=== PATIENT | female | born 1965 | race Two or more races ===

== ENCOUNTER 2020-02-17 15:45 | Inpatient (IN) | payer OTHER ==
[~2020-02-17] VITALS: Ht 157.5 cm; Wt 75.3 kg
[2020-02-17 16:28] LABS: Hematocrit 26.9 % (33.0-51.0); Hemoglobin 8.9 g/dL (11.5-16.0); Mean Corpuscular HGB 24.1 pg (26.0-34.0); Mean Corpuscular HGB Conc 33.1 g/dL (31.5-36.5); Mean Corpuscular Volume 73 fL (80-100); Mean Platelet Volume 10.8 fL (9.1-12.4); Platelet Count 318 K/mm3 (150-400); RDW Coefficient Variation 17.2 % (11.7-14.2); RDW Standard Deviation 45.1 fL (35.1-46.3); Red Blood Cell Count 3.69 M/mm3 (3.80-5.20); White Blood Cell Count 22.47 K/mm3 (4.00-11.30)
[2020-02-17 16:40] LABS: Albumin, Blood 2.9 g/dL (3.4-5.0); Albumin/Globulin Ratio 0.7 (0.8-1.8); Bilirubin, Total 1.2 mg/dL (0.1-1.0); Bun/Creatinine Ratio 15.8 (12.0-20.0); Calcium, Blood 8.3 mg/dL (8.5-10.1); Creatinine, Blood 3.29 mg/dL (0.40-1.00); Potassium, Blood 3.2 mmol/L (3.5-5.5); Total Protein, Blood 6.9 g/dL (6.4-8.2)
[2020-02-17 16:45] LABS: BAND PERCENT MAN 21 % (0-8); BASOPHILS ABSOLUTE MAN 0.22 K/mm3 (0.00-0.23); BASOPHILS PERCENT MAN 1 % (0-2); EOSINOPHILS PERCENT MAN 0 % (0-6); LYMPHOCYTES ABSOLUTE MAN 0.44 K/mm3 (0.84-5.20); LYMPHOCYTES PERCENT MAN 2 % (21-46); METAMYELOCYTE ABSOLUTE MAN 0.44 K/mm3 (0.00-0.00); METAMYELOCYTE PERCENT MAN 2 % (0-0); MONOCYTES ABSOLUTE MAN 0.67 K/mm3 (0.16-1.47); MONOCYTES PERCENT MAN 3 % (4-13); NEUTROPHILS ABSOLUTE MAN 20.67 K/mm3 (1.96-9.15); SEG NEUTROPHILS PERCENT MAN 71 % (41-73); TOTAL CELLS COUNTED 100
[2020-02-17] MEDS ORDERED: ARIP20 PO (16:45)
[2020-02-17] MEDS ORDERED: AMLO5 PO (16:45)
[2020-02-17] MEDS ORDERED: Buspirone HCl15 MG PO (16:46)
[2020-02-17] MEDS ORDERED: Vitamin D2000 UNIT PO (16:46)
[2020-02-17] MEDS ORDERED: LISI5 PO (16:47)
[2020-02-17] MEDS ORDERED: EUTHYROX50 MCG PO (16:47)
[2020-02-17] MEDS ORDERED: MELA3 PO (16:48)
[2020-02-17] MEDS ORDERED: MYRBETRIQ50 MG PO (16:48)
[2020-02-17] MEDS ORDERED: OMEP20ER PO (16:49)
[2020-02-17] MEDS ORDERED: PARO30 PO (16:49)
[2020-02-17] MEDS ORDERED: TRAZ100 PO (16:50)
[2020-02-17] MEDS ORDERED: Ropinirole HCl2 MG PO (16:50)
[2020-02-17] MEDS ORDERED: GABA300 PO (17:03)
[2020-02-17] MEDS ORDERED: ASMANEX220 MC3 INH (17:03)
[2020-02-17] MEDS ORDERED: ANASTROZOLE PO (17:04)
[2020-02-17] MEDS ORDERED: SENN187 PO (17:04)
[2020-02-17] MEDS ORDERED: LIDO700A20 TOP (17:07)
[2020-02-17] MEDS ORDERED: Hydroxyzine HCl50 MG PO (17:07)
[2020-02-17] MEDS ORDERED: NAPR500 PO (17:09)
[2020-02-17] MEDS ORDERED: ONDA4 PO (17:09)
[2020-02-17] MEDS ORDERED: DICLOFENAC SOD100 G1 TOP (17:11)
[2020-02-17] MEDS ORDERED: Refresh Plus1 EACH BOTHEYES (17:11)
[2020-02-17 18:36] LABS: International Normalized Ratio 1.23
--- NOTE | 2020-02-17 20:35 | NUR ---
ADMIT/LINE PLACEMENT RECEIVED FROM ER AT 1938 VIA RNEY. AWAKE AND ALERT. ORIENTED X 3. SPEECH IS CLEAR AND APPROPRIATE. MOVES SELF EASILY IN BED. MOVING ALL EXTREMITIES WITHOUT DIFFICULTY. C/O PAIN IN MARTIN-RECTAL AREA AND LEFT UPPER LEG. MARTIN-RECTAL ABSCESS AND REDNESS TO LEFT INNER THIGH NOTED. MONITOR SHOWS NSR, RATE 90s. BP 81/51. RESPIRATIONS EVEN AND UNLABORED. SATS 91% ON 2L. SEE ADMIT ASSESSMENT FOR FULL ASSESSMENT. DR. DEWEY IN ROOM TO START CENTRAL LINE. MEDICATED WITH VERSED 2MG IV FOR PROCEDURE. FENTANYL 12.5MCG DRAWN UP BUT NEVER GIVEN. LEVOPHED STARTED @ 4MCG/MIN AT 2004 FOR BP 69/41. O2 INCREASED TO 4L AT 2014. CENTRAL LINE PLACED AND CONFIRMED WITH XRAY. LEVOPHED INCREASED TO 20MCG/MIN AT [address] DEWEY. LAWSON CATHETER PLACED. TO OR AT 2034.
--- NOTE | 2020-02-17 22:10 | NUR ---
RETURN FROM OR RECEIVED FROM OR S/P DEBRIDEMENT OF PERIANAL ABSCESS. PT IS INTUBATED- AC 16, TV 350, PEEP 5, FIO2 100%. RR 16. UNRESPONSIVE TO NOXIOUS STIMULI AT THIS TIME. LEVOPHED INFUSING @ 20MCG/MIN. BP 100/60. HR 100. SATS STABLE. PERIANAL ABSCESS PACKED WITH DAKINS SOLUTION SOAKED GAUZE AND COVERED WITH ABD PAD AND MADONNA UNDERWEAR PER DR. BAKER. LAWSON PATENT AND DRAINING. OG PLACED AT THIS TIME. CXR DONE TO CONFIRM ETT PLACEMENT- RT AT BEDSIDE AND PULLED ETT BACK SEVERAL CENTIMETERS. SEE RT CHARTING.
[2020-02-17 22:15] LABS: Adenovirus Not Detected (NOT DETECT); Bordetella pertussis Not Detected (NOT DETECT); Chlamydophila pneumoniae Not Detected (NOT DETECT); Coronavirus 229E Not Detected (NOT DETECT); Coronavirus HKU1 Not Detected (NOT DETECT); Coronavirus NL63 Not Detected (NOT DETECT); Coronavirus OC43 Not Detected (NOT DETECT); Human Metapneumovirus Not Detected (NOT DETECT); Human Rhinovirus/Enterovirus Not Detected (NOT DETECT); Influenza A/2009-H1 Not Detected (NOT DETECT); Influenza A/H1 Not Detected (NOT DETECT); Influenza A/H3 Not Detected (NOT DETECT); Influenza B Not Detected (NOT DETECT); Mycoplasma pneumoniae Not Detected (NOT DETECT); Parainfluenza Virus 1 Not Detected (NOT DETECT); Parainfluenza Virus 2 Not Detected (NOT DETECT); Parainfluenza Virus 3 Not Detected (NOT DETECT); Parainfluenza Virus 4 Not Detected (NOT DETECT); Respiratory Syncytial Virus Not Detected (NOT DETECT)
[2020-02-17 22:49] LABS: BASOPHILS ABSOLUTE AUTO 0.06 K/mm3 (0.00-0.23); BASOPHILS PERCENT AUTO 0 % (0-2); Hematocrit 25.9 % (33.0-51.0); Hemoglobin 8.3 g/dL (11.5-16.0); LYMPHOCYTES ABSOLUTE AUTO 1.12 K/mm3 (0.84-5.20); LYMPHOCYTES PERCENT AUTO 5 % (21-46); MONOCYTES ABSOLUTE AUTO 1.35 K/mm3 (0.16-1.47); MONOCYTES PERCENT AUTO 6 % (4-13); Mean Corpuscular HGB 23.9 pg (26.0-34.0); Mean Corpuscular Volume 74 fL (80-100); Mean Platelet Volume 10.3 fL (9.1-12.4); Platelet Count 305 K/mm3 (150-400); RDW Coefficient Variation 17.8 % (11.7-14.2); RDW Standard Deviation 48.3 fL (35.1-46.3); Red Blood Cell Count 3.48 M/mm3 (3.80-5.20); White Blood Cell Count 22.34 K/mm3 (4.00-11.30)
[2020-02-17 22:50] LABS: EOSINOPHILS ABSOLUTE AUTO 0.04 K/mm3 (0.00-0.68); EOSINOPHILS PERCENT AUTO 0 % (0-6); IMMATURE GRAN ABSOLUTE AUTO 1.04 K/mm3 (0.00-0.10); IMMATURE GRAN PERCENT AUTO 5 % (0-1); NEUTROPHILS ABSOLUTE AUTO 18.73 K/mm3 (1.96-9.15); NEUTROPHILS PERCENT AUTO 84 % (41-73)
[2020-02-17 22:50] LABS: Base Excess Venous -10.6 mmol/L; Bicarbonate Venous 16.3 mmol/L (24.0-30.0); PCO2 Venous 46.8 mmHg (38-42)
[2020-02-17 22:51] LABS: pH Blood Venous 7.19 (7.34-7.37)
[2020-02-17 23:05] LABS: BAND PERCENT MAN 7 % (0-8); BASOPHILS PERCENT MAN 0 % (0-2); EOSINOPHILS PERCENT MAN 0 % (0-6); LYMPHOCYTES ABSOLUTE MAN 0.89 K/mm3 (0.84-5.20); LYMPHOCYTES PERCENT MAN 4 % (21-46); METAMYELOCYTE ABSOLUTE MAN 0.22 K/mm3 (0.00-0.00); METAMYELOCYTE PERCENT MAN 1 % (0-0); MONOCYTES ABSOLUTE MAN 0.67 K/mm3 (0.16-1.47); MONOCYTES PERCENT MAN 3 % (4-13); NEUTROPHILS ABSOLUTE MAN 20.55 K/mm3 (1.96-9.15); SEG NEUTROPHILS PERCENT MAN 85 % (41-73); TOTAL CELLS COUNTED 100
[2020-02-17 23:08] LABS: Alanine Aminotransfer (ALT/SGP 35 U/L (12-78); Albumin, Blood 2.1 g/dL (3.4-5.0); Albumin/Globulin Ratio 0.6 (0.8-1.8); Alk Phos 100 U/L (50-136); Anion Gap 8 mmol/L (6-16); Aspartate Aminotrans (AST/SGOT 50 U/L (12-37); Bilirubin, Total 0.8 mg/dL (0.1-1.0); Blood Urea Nitrogen 40 mg/dL (8-24); Bun/Creatinine Ratio 18.8 (12.0-20.0); CO2, Blood 20 mmol/L (21-32); Calcium, Blood 7.2 mg/dL (8.5-10.1); Chloride, Blood 107 mmol/L (98-108); Creatinine, Blood 2.13 mg/dL (0.40-1.00); Globulin, Blood 3.5 g/dL (2.2-4.0); Glomerular Filtration Rate 26 (60-); Glucose, Blood 197 mg/dL (70-99); Sodium, Blood 135 mmol/L (136-145); Total Protein, Blood 5.6 g/dL (6.4-8.2); Troponin I <0.015 ng/mL (0.000-0.040)
[2020-02-18 04:14] LABS: Base Excess Venous -7.8 mmol/L; Bicarbonate Venous 18.3 mmol/L (24.0-30.0); PCO2 Venous 44.4 mmHg (38-42); PO2 Venous 64.8 mmHg (38-42); pH Blood Venous 7.25 (7.34-7.37)
[2020-02-18 04:34] LABS: Hematocrit 26.2 % (33.0-51.0); Hemoglobin 8.3 g/dL (11.5-16.0); Mean Corpuscular HGB 23.8 pg (26.0-34.0); Mean Corpuscular HGB Conc 31.7 g/dL (31.5-36.5); Mean Corpuscular Volume 75 fL (80-100); Mean Platelet Volume 10.7 fL (9.1-12.4); Platelet Count 337 K/mm3 (150-400); RDW Coefficient Variation 18.2 % (11.7-14.2); RDW Standard Deviation 49.1 fL (35.1-46.3); Red Blood Cell Count 3.49 M/mm3 (3.80-5.20); White Blood Cell Count 21.44 K/mm3 (4.00-11.30)
[2020-02-18 04:56] LABS: Alanine Aminotransfer (ALT/SGP 30 U/L (12-78); Albumin/Globulin Ratio 0.5 (0.8-1.8); Alk Phos 97 U/L (50-136); Anion Gap 8 mmol/L (6-16); Aspartate Aminotrans (AST/SGOT 40 U/L (12-37); Bilirubin, Total 0.7 mg/dL (0.1-1.0); Blood Urea Nitrogen 40 mg/dL (8-24); Bun/Creatinine Ratio 23.1 (12.0-20.0); CO2, Blood 20 mmol/L (21-32); Calcium, Blood 7.4 mg/dL (8.5-10.1); Chloride, Blood 106 mmol/L (98-108); Creatinine, Blood 1.73 mg/dL (0.40-1.00); Globulin, Blood 3.7 g/dL (2.2-4.0); Glomerular Filtration Rate 33 (60-); Glucose, Blood 230 mg/dL (70-99); Potassium, Blood 4.5 mmol/L (3.5-5.5); Sodium, Blood 134 mmol/L (136-145); Total Protein, Blood 5.7 g/dL (6.4-8.2); Vancomycin, Random 21.5 ug/mL
[2020-02-18 06:42] LABS: BAND PERCENT MAN 12 % (0-8); BASOPHILS PERCENT MAN 0 % (0-2); EOSINOPHILS PERCENT MAN 0 % (0-6); LYMPHOCYTES ABSOLUTE MAN 0.85 K/mm3 (0.84-5.20); LYMPHOCYTES PERCENT MAN 4 % (21-46); METAMYELOCYTE ABSOLUTE MAN 0.21 K/mm3 (0.00-0.00); METAMYELOCYTE PERCENT MAN 1 % (0-0); MONOCYTES ABSOLUTE MAN 1.07 K/mm3 (0.16-1.47); MONOCYTES PERCENT MAN 5 % (4-13); MYELOCYTE ABSOLUTE MAN 0.21 K/mm3 (0.00-0.00); MYELOCYTE PERCENT MAN 1 % (0-0); NEUTROPHILS ABSOLUTE MAN 19.08 K/mm3 (1.96-9.15); SEG NEUTROPHILS PERCENT MAN 77 % (41-73); TOTAL CELLS COUNTED 100
--- NOTE | 2020-02-18 06:51 | NUR ---
SHIFT SUMMARY REMAINS INTUBATED- AC 20, TV 350, PEEP 5, FIO2 50%. SEDATED WITH PROPOFOL 10-30MCG/MIN- NOW AT 30MCG/MIN. OPENS EYES SPONTANEOUSLY AND NODS HEAD YES/NO APPROPRIATELY. FOLLOWS SIMPLE COMMANDS. MEDICATED WITH DILAUDID 1MG IV THIS AM FOR C/O PERIANAL PAIN. LEVOPHED BETWEEN 4-20MCG/MIN DURING SHIFT TO MAINTAIN MAP >60- INFUSING AT 17MCG/MIN NOW. VASOPRESSIN @ 0.04UNITS/MIN PER ORDER. RI SITE PATENT, DRSG C/D/I. MONITOR SHOWS NSR, RATE 80-90s. AFEBRILE T/O SHIFT. OG TO LIS WITH SCANT TANNISH DRAINAGE. LAWSON PATENT AND DRAINING DERECK URINE. PERIANAL ABSCESS WITH PACKING AND ABD PAD INTACT. PAS TO BLE. GIVEN UPDATE THIS AM- HE IS ANGRY THAT HE ISN'T ALLOWED TO VISIT PATIENT AND THAT WE AREN'T "GIVING HIM INFORMATION." FULL UPDATE GIVEN. WILL REPORT TO DAY SHIFT RN WHEN AVAILABLE.
--- NOTE | 2020-02-18 08:45 | NUR ---
ASSUMED CARE OF PT AT 0700. REPORT FROM EZEQUIEL SENA. PT INTUBATED AND SEDATED. VENT SETTINGS AC 20/350/5/45%. PROPOFOL INFUSING AT 30 MCG/KG/MIN AT START OF SHIFT, TITRATED TO 20 MCG/KG/MIN AT THIS TIME. PT GRIMICES TO PAINFUL STIMULI. LUNGS CLEAR THROUGHOUT. OGT CLAMPED. PLACEMENT VERIFIED BY AUSCULTATION. MEDS GIVEN VIA OGT. CENTRAL LINE TO RIGHT IJ. DRESSING C/D/I. LEVOPHED INFUSING AT 17MCG/MIN AT START OF SHIFT, 13 MCG/MIN AT THIS TIME, VASOPRESSIN AT 0.04 UNITS/HR. WILL TITRATE FOR MAP >65. ABD DISTENDED, SOFT, NON TENDER. BT HYPOACTIVE. TEMP PROBE LAWSON PATENT AND DRAINING CLEAR DERECK URINE TO GRAVITY. DRESSING TO POSTERIOR LEFT UPPER LEG, C/D/I. DR BAKER ROUNDED THIS AM, PLAN TO REMOVE DRESSING LATER THIS SHIFT AND RETURN TO OR IF NEEDED. WILL LEAVE DRESSING INTACT UNTIL THEN. WILL CONTINUE TO MONITOR.
--- NOTE | 2020-02-18 13:36 | NUR ---
DR BAKER/DR ZULEIMA BAKER IN ROOM FOR ASSESSMENT. DRESSING REMOVED. PER DR BAKER, REDNESS TO THIGH IMPROVED AND TISSUE ALIVE IN WOUND. REPACKED c 4IN KERLEX c DAKIN AND ABD PADS PLACED. DR BAKER STATES HE WILL RETURN FOR DRESSING CHANGES DAILY FOR NEXT TWO DAYS. DR DEWEY IN ROOM FOR ASSESSMENT. WILL CONTINUE TO TITRATE LEVOPHED DOWN, D/C VASOPRESSIN ONCE LEVOPHED <10 MCG/MIN.
--- NOTE | 2020-02-18 17:02 | NUR ---
SHIFT SUMMARY PT REMAINS INTUBATED AND SEDATED. VENT SETTINGS AC 20/350/5/40%. PROPOFOL INFUSING AT 25 MCG/KG/MIN. PT WAKES INTERMITTANTLY c STIMULI, FOLLOWS COMMANDS. APPEARS TO REST COMFORTABLEY WHEN UNDISTURBED. MEDICATED c FENTANYL PRN. LEVOPHED INFUSING AT 9 MCG/MIN, VASOPRESSIN IN STANDBY SINCE APPROX 1430. MAPS >60. NSR, RATE 70'S. LUNGS CLEAR, SCANT [place] SECRETIONS THROUGH ETT. TRICKLE FEEDS STARTED THROUGH OGT, PIVOT 1.5 AT 10 ML/HR c 30 ML q4 HR FLUSHES. LAWSON PATENT AND DRAINING TO GRAVITY. DRESSING REMOVED BY DR ABKER THIS SHIFT, SEE PREVIOUS NOTE. ANTIBIOTICS CONTINUED THIS SHIFT. CENTRAL LINE TO RIJ, DRESSING C/D/I. UPDATED FRANCISCO JAVIER AND FATHER, AMOL MCINTYRE'S PERMISSION OVER PHONE TODAY. WILL CONTINUE TO MONITOR UNTIL REPORT TO ONCOMING NURSE.
[2020-02-19 05:17] LABS: Anion Gap 6 mmol/L (6-16); Blood Urea Nitrogen 21 mg/dL (8-24); Bun/Creatinine Ratio 21.4 (12.0-20.0); CO2, Blood 25 mmol/L (21-32); Calcium, Blood 7.8 mg/dL (8.5-10.1); Chloride, Blood 110 mmol/L (98-108); Creatinine, Blood 0.98 mg/dL (0.40-1.00); Glomerular Filtration Rate >60 (60-); Glucose, Blood 135 mg/dL (70-99); Magnesium, Blood 2.4 mg/dL (1.6-2.4); Phosphorus, Blood 1.8 mg/dL (2.5-4.9); Potassium, Blood 3.6 mmol/L (3.5-5.5); Sodium, Blood 141 mmol/L (136-145); Vancomycin, Random 11.5 ug/mL
--- NOTE | 2020-02-19 06:15 | NUR ---
SHIFT SUMMARY PATIENT DID WELL TONIGHT. PASSED SPONTANEOUS BREATHING TRIAL, WAS ON MINIMAL PROPOFOL, STILL AWAKE, ALERT, FOLLOWING DIRECTIONS. PLACED ON SPONTANEOUS PER RESPIRATORY THERAPY, DID WELL FOR 30 MINUTES, DECIDED TO PLACE BACK ON SEDATION R/T IRRITATION FROM ETT. BEDBATH COMPLETED. ASSESSMENT IS CHARTED. VSS. NO C/O PAIN. WILL CONTINUE TO MONITOR.
--- NOTE | 2020-02-19 08:11 | NUR ---
ASSUMED CARE OF PT AT 0700. REPORT FROM TAYLOR SENA. PT INTUBATED AND SEDATED. VENT SETTINGS AC 20/350/5/50%. PROPOFOL INFUSING AT 40 MCG/KG/MIN. PT RESPONSES TO PAINFUL STIMULI, LOCALIZES PAIN. MEDICATED c FENTANYL PRN FOR POST OP PAIN. COUGH AND GAG REFLEX, NO SWALLOW. MAEW. LUNGS COARSE ON LEFT SIDE. SCANT AMOUNT OF WHITE/RICHMOND SECRETIONS THROUGH ETT. 7.0, 19 AT LIP. LEVOPHED INFUSING AT 9 MCG/MIN AT START OF SHIFT, CURRENTLY AT 5 MCG/MIN, WILL CONTINUE TO TITRATE TO MAP >65. NSR ON MONITOR, RATE 70-80'S. OGT IN PLACE, PIVOT 1.5 AT 10 ML/HR c 30 ML FLUSHES q4 HOURS. 20ML RESIDUALS THIS AM. ABD ROUND, DISTENDED. HYPOACTIVE BT X 4. TEMP PROBE LAWSON PATENT, DRAINING CLEAR YELLOW URINE TO GRAVITY. TEMP 99.3. SCDS IN PLACE. BILATERAL WRIST RESTARINTS TO PROTECT LINES AND TUBES. WILL CONTINUE TO MONITOR.
--- NOTE | 2020-02-19 09:20 | NUR ---
PT PLACED ON SPONTANEOUS MODE BY DR DEWEY. PS 5, PEEP 5, 40% AT 0820. PROPOFOL PLACED ON STANDBY AT 0826. PT FOLLOWS DIRECTIONS. STRONG COUGH. CALM AND COOPERATIVE. TUBE FEEDS PLACED ON STANDBY. PT EXTUBATED AT 0852. RESTRAINTS REMOVED. PT TOLERATED WELL. STRONG COUGH AND VOICE. A&OX4. PLACED ON 7L O2 VIA HIGH FLOW NC. O2 SATS MID 90'S.
--- NOTE | 2020-02-19 11:40 | NUR ---
DR BAKER IN ROOM FOR DRESSING CHANGE. PACKING REMOVED. AREA PINK. DRESSING REPLACED BY ARNAV RICHARDSON DAKIN, ABD PAD, MADONNA PANTS. WILL NOT REPLACE TAPE D/T SKIN SLOUGHING. PT PASSED SWALLOW SCREEN s DIFFICULTIES.
--- NOTE | 2020-02-19 17:18 | NUR ---
SHIFT SUMMARY PT EXTUBATED THIS AM. TOLERATED WELL. PASSED BEDSIDE SWALLOW EVAL. MECHANICAL SOFT DIET D/T DENTURES. PT ON AIRVO 40L 65%. O2 SATS >95%. ENCOURAGING COUGHING AND DEEP BREATHING. PT c BLOOD STREAKED SPUTUM. LUNGS COARSE THROUGHOUT. SPEAKING IN FULL SENTANCES. PRESSORS ON STANDBY SINCE THIS AM. VSS. TMAX 100.0. LAWSON PATENT AND DRAINING CLEAR YELLOW URINE TO GRAVITY. DR BAKER IN FOR DRESSING CHANGE THIS SHIFT. PT MEDICATED c FENTANYL PRN FOR PAIN. WILL CONTINUE TO MONITOR UNTIL REPORT TO ONCOMING NURSE.
--- NOTE | 2020-02-19 20:06 | NUR ---
ASSUMED CARE OF PT AT 1915. REPORT RECEIVED AT BEDSIDE. PT PRESENTS IN BED ALERT AND ORIENTED. PLEASANT AND COOPERATIVE WITH CARE AND ASSESSMENT. PT EXPRESSES THAT SHE IS WANTING TO MAKE SURE SHE RECEIVES PAIN MEDICATIONS FOR POST SURGICAL WOUND CARE. TEACHING DONE ON PAIN MANAGEMENT DONE. WILL KEEP ASSESSING PT'S NEED FOR PAIN MEDICATIONS. PT DOES HAVE LOW GRADE FEVER OF 100.0 PER LAWSON TEMP PROBE. ADMINISTERED 650 MG TYLENOL WELL 50 MCG FENTANYL. PENDING RESULTS. ENCOURAGED PT TO COUGH AND DEEP BREATHE. TO TURN SELF IN BED. DRIPS VERIFIED. WILL REVIEW CHART AND PLAN OF CARE FOR THIS PT.
--- NOTE | 2020-02-19 22:05 | NUR ---
HAVE MEDICATED PT AGAIN WITH 50 MCG FENTANYL FOR POST OP PAIN. PT BECAME NAUSEAS AFTER TAKING LIQUID DUCOSATE SODIUM. MEDICATED PT WITH 5 MG COMPAZINE IV. PENDING RESULTS. PT DOES TEND TO DESATURATE EASILY WITH ANY EXERTION. ENCOURAGED PT TO DEEP BREATHE THRU NARES. PT CURRENTLY > 90 PERCENT SATURATED.
[2020-02-20 06:10] LABS: Anion Gap 7 mmol/L (6-16); Blood Urea Nitrogen 9 mg/dL (8-24); Bun/Creatinine Ratio 12.8 (12.0-20.0); CO2, Blood 26 mmol/L (21-32); Calcium, Blood 8.1 mg/dL (8.5-10.1); Chloride, Blood 108 mmol/L (98-108); Glomerular Filtration Rate >60 (60-); Glucose, Blood 125 mg/dL (70-99); Phosphorus, Blood 2.5 mg/dL (2.5-4.9); Potassium, Blood 3.6 mmol/L (3.5-5.5); Sodium, Blood 141 mmol/L (136-145)
--- NOTE | 2020-02-20 06:30 | NUR ---
PT HAS BEEN INCONTINENT TO STOOL X 3 DURING THE NIGHT. TWICE REQUIRING TO HAVE MARTIN-ANAL WOUND DRESSING CHANGED. OF NOTE: WOUND BASE WITH GOOD GRANULATIONS. EDGES NOT ATTACHED. COPIOUS IRRIGATION WITH NORMAL SALINE SECONDARY TO INADVERTANT STOOL WITHIN WOUND. PT PREMEDICATED WITH FENTANYL. PT HAS HAD MANY EPISODES OF DESATURATION TO 70'S TO 80'S PERCENT WHEN SHE HAS HAD COUGH OR EXERTION. PT DEMONSTRATES "AIR HUNGER" AND BECOMES VERY ANXIOUS. DID PROVIDE PT WITH NRB SO WHEN SHE HAS THESE EPISODES SHE CAN RECOVER FASTER. THIS HAS BEEN AFFECTIVE. WILL CONTINUE TO MONITOR PT, AND WILL REPORT OFF TO ONCOMING RN.
--- NOTE | 2020-02-20 07:29 | NUR ---
ASSUMED CARE REPORT FROM JAIDA SHEFFIELD. PATIENT HAS NRB OVER HIGH FLOW NC. RR 40'S-50'S. HYPERTENSIVE, FINE CRACKLES AUSCULTATED. RT AT BEDSIDE. DR. NAVA CONTACTED. ORDERS FOR BIPAP 10/5 LASIX 40 MG IV NOW. IMMEDIATE IMPROVEMENT ON BIPAP. BEDPAN PLACED FOR BM, WAS INCONTINENT WITH STOOL INTO WOUND. WILL MEDICATE FOR PAIN PRIOR TO CLEANING.
[2020-02-20 08:01] LABS: Hemoglobin 8.5 g/dL (11.5-16.0); Mean Corpuscular HGB 24.4 pg (26.0-34.0); Mean Corpuscular HGB Conc 32.7 g/dL (31.5-36.5); Mean Corpuscular Volume 75 fL (80-100); Mean Platelet Volume 10.3 fL (9.1-12.4); NRBC ABSOLUTE 0.02 K/mm3 (0.00-0.02); NRBC Auto 0.1 /100 WBC (0.0-0.2); Platelet Count 353 K/mm3 (150-400); RDW Coefficient Variation 18.5 % (11.7-14.2); Red Blood Cell Count 3.48 M/mm3 (3.80-5.20); White Blood Cell Count 20.03 K/mm3 (4.00-11.30)
[2020-02-20 08:23] LABS: BAND PERCENT MAN 3 % (0-8); BASOPHILS PERCENT MAN 0 % (0-2); EOSINOPHILS PERCENT MAN 3 % (0-6); LYMPHOCYTES PERCENT MAN 9 % (21-46); METAMYELOCYTE PERCENT MAN 3 % (0-0); MONOCYTES PERCENT MAN 3 % (4-13); MYELOCYTE PERCENT MAN 2 % (0-0); NEUTROPHILS ABSOLUTE MAN 16.02 K/mm3 (1.96-9.15); SEG NEUTROPHILS PERCENT MAN 77 % (41-73); TOTAL CELLS COUNTED 100
--- NOTE | 2020-02-20 08:44 | NUR ---
MD VISIT DR. BAKER IN. DRESSING CHANGED. PLAN FOR SURGERY ON SUNDAY.
--- NOTE | 2020-02-20 09:06 | NUR ---
MD VISIT DR. NAVA IN. ORDER TO PRONE PT IF TOLERATED
--- NOTE | 2020-02-20 09:19 | NUR ---
UPDATED. HE WILL BRING IN PHONE DISPATCH CLERK AND I PAD
--- NOTE | 2020-02-20 12:33 | NUR ---
ECHOCARDIOGRAM COMPLETED.
--- NOTE | 2020-02-20 12:50 | NUR ---
PATIENT SELF-PRONED 1020. INITIALLY ON 10L HIGH-FLOW NC, BUT ARMAAN-GARRETT BREATHING NOTED WHEN ASLEEP AND O2 TITRATED TO 15L. WAS PRONE UNTIL 1045 WHEN ASSISTED TO [facility] [place] [facility] FOR BM PRIOR TO ECHO. ECHO COMPLETED AND PLACED BACK ON BIPAP FOR SUPINE AND SIDE POSITIONING.
--- NOTE | 2020-02-20 13:03 | NUR ---
MD VISIT DR. NAVA IN. BIPAP CHANGED TO 8/5 AND 40% FIO2
--- NOTE | 2020-02-20 14:56 | NUR ---
SOB AFTER BSC USE. BIPAP MASK BACK ON. FENTANYL GIVEN PRIOR TO WOUND CLEANING/DRESSING CHANGE AFTER BM.
--- NOTE | 2020-02-20 15:06 | NUR ---
TYLENOL GIVEN FOR FEVER
--- NOTE | 2020-02-20 19:00 | NUR ---
ASSUMED CARE ASSUMED CARE OF PATIENT. AWAKE AND ALERT. WATCHING TELEVISION. PT IS IRRITABLE AND ANNOYED WITH THE FACT THAT HER HOME MEDS HAVEN'T BEEN RESTARTED AND THAT THE OTHER PATIENTS IN THE ICU ARE NOISY AND AGITATED. REMAINS ON 15L HFNC- SATS DECREASE TO MID 70-80s WITH EXERTION. MONITOR SHOWS NSR, RATE 90s. HYPERTENSIVE. LAWSON PATENT AND DRAINING YELLOW URINE. RIGHT IJ NOTED, SL. PERIANAL DRSG C/D/I AT THIS TIME. SEE SHIFT ASSESSMENT FOR FULL ASSESSMENT.
--- NOTE | 2020-02-20 19:17 | NUR ---
BREAK FROM BIPAP ON 12L NC. ENCOURAGEMENT TO TAKE A DEEP BREATH THROUGH HER NOSE WHEN BIOX DROPS.
--- NOTE | 2020-02-20 20:05 | NUR ---
CRACKLES/CALL TO MD PT STATES "I FEEL LIKE I'M DROWNING." LUNGS WITH CRACKLES T/O. MOIST COUGH. REMAINS ON 15L HFNC WITH SATS ANYWHERE FROM 75-90%. TACHYPNEIC. DR. LINDSAY NOTIFIED AND NEW ORDER RECEIVED FOR LASIX 20MG IV X 1.
--- NOTE | 2020-02-20 21:55 | NUR ---
REFUSING BIPAP/CALL TO PT REFUSING BIPAP. STATES "THERE'S NO WAY I CAN SLEEP WITH THAT THING ON." CHANGED BACK TO HFNC. PT IS ALSO UPSET THAT HER HOME MEDS HAVEN'T BEEN RESTARTED. STATES "I WON'T BE ABLE TO SLEEP WITHOUT MY MELATONIN AND TRAZEDONE." CALL TO DR. LINDSAY AND NEW ORDERS RECEIVED FOR SOME OF HER HOME MEDS TO BE RESTARTED AND FOR ATIVAN 1MG PO IF NEEDED.
[2020-02-21 05:43] LABS: Hematocrit 26.5 % (33.0-51.0); Hemoglobin 8.6 g/dL (11.5-16.0); Mean Corpuscular HGB 23.8 pg (26.0-34.0); Mean Corpuscular HGB Conc 32.5 g/dL (31.5-36.5); Mean Corpuscular Volume 73 fL (80-100); Mean Platelet Volume 10.3 fL (9.1-12.4); NRBC ABSOLUTE 0.03 K/mm3 (0.00-0.02); NRBC Auto 0.1 /100 WBC (0.0-0.2); Platelet Count 379 K/mm3 (150-400); RDW Coefficient Variation 17.5 % (11.7-14.2); Red Blood Cell Count 3.61 M/mm3 (3.80-5.20); White Blood Cell Count 22.32 K/mm3 (4.00-11.30)
[2020-02-21 05:57] LABS: Anion Gap 9 mmol/L (6-16); Blood Urea Nitrogen 9 mg/dL (8-24); Bun/Creatinine Ratio 12.9 (12.0-20.0); CO2, Blood 30 mmol/L (21-32); Calcium, Blood 8.4 mg/dL (8.5-10.1); Chloride, Blood 99 mmol/L (98-108); Glomerular Filtration Rate >60 (60-); Glucose, Blood 150 mg/dL (70-99); Phosphorus, Blood 2.8 mg/dL (2.5-4.9); Potassium, Blood 2.8 mmol/L (3.5-5.5); Sodium, Blood 138 mmol/L (136-145)
--- NOTE | 2020-02-21 05:58 | NUR ---
SHIFT SUMMARY NO ACUTE CHANGES. O2 REQUIREMENTS OSCILLATED BETWEEN BIPAP 8/5 WITH FIO2 80%, AIRVO 60L/80% FIO2, AND 15L HFNC. DYSPNEA WITH EXERTION. TACHYPNEA AT TIMES. OCCASIONAL MOIST COUGH. MEDICATED WITH LASIX 20MG IV X 1 AT BEGINNING OF SHIFT FOR FLUID OVERLOAD. LUNGS WITH CRACKLES IN BASES. PT STATES SHE FEELS LIKE SHE IS BREATHING BETTER. MONITOR SHOWS NSR, RATE 90s. OCCASIONALLY HYPERTENSIVE WITH SBP 160s AND DBP 90-100s. TMAX 100.4F. MEDICATED WITH FENTANYL 50MCG IV X 2 DOSES FOR C/O PERIANAL PAIN WITH GOOD RESULTS. LAWSON PATENT AND DRAINING YELLOW URINE. WILL REPORT TO DAY SHIFT RN WHEN AVAILABLE.
[2020-02-21 06:34] LABS: BAND PERCENT MAN 3 % (0-8); BASOPHILS PERCENT MAN 0 % (0-2); EOSINOPHILS PERCENT MAN 0 % (0-6); LYMPHOCYTES ABSOLUTE MAN 3.12 K/mm3 (0.84-5.20); LYMPHOCYTES PERCENT MAN 14 % (21-46); METAMYELOCYTE ABSOLUTE MAN 0.44 K/mm3 (0.00-0.00); METAMYELOCYTE PERCENT MAN 2 % (0-0); MONOCYTES ABSOLUTE MAN 0.44 K/mm3 (0.16-1.47); MONOCYTES PERCENT MAN 2 % (4-13); MYELOCYTE ABSOLUTE MAN 0.22 K/mm3 (0.00-0.00); MYELOCYTE PERCENT MAN 1 % (0-0); NEUTROPHILS ABSOLUTE MAN 18.07 K/mm3 (1.96-9.15); SEG NEUTROPHILS PERCENT MAN 78 % (41-73); TOTAL CELLS COUNTED 100
--- NOTE | 2020-02-21 07:37 | NUR ---
ASSUMED CARE REPORT FROM JAIDA NIEVES. PATIENT ASLEEP WITH AIRVO IN PLACE AT 60L/82% FIO2.BIOX 94-96% GHAZALRT WILL TITRATE O2 DOWN TO MAINTAIN BIOX 88%-94%
--- NOTE | 2020-02-21 08:48 | NUR ---
PATIENT CONTINUES TO SLEEP. C/O BEING KEPT AWAKE BY DISRUPTIVE PATIENTS LAST NIGHT, SO ALLOWING TO SLEEP
--- NOTE | 2020-02-21 09:31 | NUR ---
MD VISIT DR. NAVA IN. WILL REVIEW HOME MEDS TO RESTART
--- NOTE | 2020-02-21 10:41 | NUR ---
MD VISIT DR. LEYVA IN TO INTRODUCE HIMSELF AND THE HOSPITALIST SERVICE.
--- NOTE | 2020-02-21 12:31 | NUR ---
DRESSING CHANGE AND BATH GIVEN AFTER PREMEDICATION WITH FENTANYL. COACHING TO TAKE DEEP BREATHS THROUGH NOSE TO RECOVER O2 SATS
--- NOTE | 2020-02-21 18:19 | NUR ---
PATIENT HAS REMAINED ON AIRVO T/O THE DAY. HOME ANXIETY MEDS WERE RESTARTED. POOR APPETITE CONTINUES, BUT ROSANA IN DIETARY CHANGED HER MENU TO FOODS SHE LIKES. REFUSES TO WEAR BIPAP. BIOX DROPS QUICKLY WHEN SHE TAKES O2 OFF AND WITH TALKING AND ACTIVITY. NEEDS TO BE REMINDED TO TAKE DEEP BREATHS. 850 CC URINE OUT FOR SHIFT. BID LASIX GIVEN.
--- NOTE | 2020-02-21 19:00 | NUR ---
ASSUMED CARE ASSUMED CARE OF PATIENT. SLEEPING WHEN UNDISTURBED. ROUSES EASILY TO VERBAL STIMULI. REPOSITIONS SELF IN BED WITHOUT DIFFICULTY. CONTINUES WITH C/O "BOTTOM" PAIN, BUT DOES STATE ADEQUATE PAIN CONTROL WITH CURRENT TREATMENT. DENIES NEED FOR PAIN MED AT THIS TIME. TACHYPNEIC AT TIMES. DYSPNEA WITH EXERTION. REMAINS ON AIRVO 60L, FIO2 62%. RR 24-40s. OCCASIONAL MOIST COUGH PRODUCTIVE OF CLEAR SPUTUM. MONITOR SHOWS NSR WITH OCCASIONAL PACs AND PVCs, RATE 80s. BP STABLE. TEMP 100.4F. LAWSON PATENT AND DRAINING YELLOW URINE. PERIANAL/LEFT THIGH WOUND WITH PACKING INTACT. RIJ SITE NOTED WITH CHLOE C/D/I. SEE SHIFT ASSESSMENT FOR FULL ASSESSMENT.
[2020-02-22 03:46] LABS: BASOPHILS ABSOLUTE AUTO 0.06 K/mm3 (0.00-0.23); BASOPHILS PERCENT AUTO 0 % (0-2); Hematocrit 25.1 % (33.0-51.0); Hemoglobin 8.1 g/dL (11.5-16.0); LYMPHOCYTES ABSOLUTE AUTO 2.69 K/mm3 (0.84-5.20); LYMPHOCYTES PERCENT AUTO 15 % (21-46); MONOCYTES ABSOLUTE AUTO 0.47 K/mm3 (0.16-1.47); MONOCYTES PERCENT AUTO 3 % (4-13); Mean Corpuscular HGB 23.9 pg (26.0-34.0); Mean Corpuscular HGB Conc 32.3 g/dL (31.5-36.5); Mean Corpuscular Volume 74 fL (80-100); Mean Platelet Volume 10.1 fL (9.1-12.4); NRBC ABSOLUTE 0.03 K/mm3 (0.00-0.02); NRBC Auto 0.2 /100 WBC (0.0-0.2); Platelet Count 384 K/mm3 (150-400); RDW Coefficient Variation 17.9 % (11.7-14.2); RDW Standard Deviation 46.5 fL (35.1-46.3); Red Blood Cell Count 3.39 M/mm3 (3.80-5.20)
[2020-02-22 03:48] LABS: EOSINOPHILS ABSOLUTE AUTO 0.67 K/mm3 (0.00-0.68); EOSINOPHILS PERCENT AUTO 4 % (0-6); IMMATURE GRAN ABSOLUTE AUTO 2.35 K/mm3 (0.00-0.10); IMMATURE GRAN PERCENT AUTO 13 % (0-1); NEUTROPHILS ABSOLUTE AUTO 11.46 K/mm3 (1.96-9.15); NEUTROPHILS PERCENT AUTO 65 % (41-73)
[2020-02-22 04:05] LABS: BAND PERCENT MAN 1 % (0-8); BASOPHILS PERCENT MAN 0 % (0-2); EOSINOPHILS ABSOLUTE MAN 1.06 K/mm3 (0.00-0.68); EOSINOPHILS PERCENT MAN 6 % (0-6); LYMPHOCYTES ABSOLUTE MAN 2.47 K/mm3 (0.84-5.20); LYMPHOCYTES PERCENT MAN 14 % (21-46); METAMYELOCYTE ABSOLUTE MAN 0.35 K/mm3 (0.00-0.00); METAMYELOCYTE PERCENT MAN 2 % (0-0); MONOCYTES ABSOLUTE MAN 0.53 K/mm3 (0.16-1.47); MONOCYTES PERCENT MAN 3 % (4-13); MYELOCYTE PERCENT MAN 4 % (0-0); NEUTROPHILS ABSOLUTE MAN 12.56 K/mm3 (1.96-9.15); SEG NEUTROPHILS PERCENT MAN 70 % (41-73); TOTAL CELLS COUNTED 100
[2020-02-22 04:14] LABS: Alanine Aminotransfer (ALT/SGP 22 U/L (12-78); Albumin, Blood 1.9 g/dL (3.4-5.0); Albumin/Globulin Ratio 0.4 (0.8-1.8); Alk Phos 107 U/L (50-136); Anion Gap 7 mmol/L (6-16); Aspartate Aminotrans (AST/SGOT 31 U/L (12-37); Bilirubin, Total 0.4 mg/dL (0.1-1.0); Blood Urea Nitrogen 17 mg/dL (8-24); Bun/Creatinine Ratio 20.8 (12.0-20.0); CO2, Blood 30 mmol/L (21-32); Calcium, Blood 8.2 mg/dL (8.5-10.1); Chloride, Blood 101 mmol/L (98-108); Creatinine, Blood 0.82 mg/dL (0.40-1.00); Globulin, Blood 4.6 g/dL (2.2-4.0); Glomerular Filtration Rate >60 (60-); Glucose, Blood 125 mg/dL (70-99); Potassium, Blood 3.6 mmol/L (3.5-5.5); Sodium, Blood 138 mmol/L (136-145); Total Protein, Blood 6.5 g/dL (6.4-8.2)
--- NOTE | 2020-02-22 06:35 | NUR ---
SHIFT SUMMARY NO ACUTE CHANGES. REMAINED ON AIRVO T/O NOC- 60L, FIO2 BETWEEN 62-70% TO KEEP SATS 88-95%. DYSPNEA WITH EXERTION. TACHYPNEA AT TIMES. OCCASIONAL MOIST COUGH, PRODUCTIVE OF CLEAR SPUTUM PER PATIENT. LUNGS WITH CRACKLES IN BASES. MONITOR SHOWS NSR, RATE 70-90s. TMAX 100.4F. MEDICATED WITH FENTANYL 50MCG IV X 3 DOSES FOR C/O PERIANAL PAIN WITH GOOD RESULTS. LAWSON PATENT AND DRAINING DERECK URINE. CONTINUES WITH POOR APPETITE. PERINEAL/LEFT MEDIAL THIGH WOUND REMAINS PACKED AND WITH DRSG D/I. REPOSITIONS SELF IN BED. ENCOURAGED FREQUENT REPOSITIONING AND USE OF FLUTTER VALVE. WILL REPORT TO DAY SHIFT RN WHEN AVAILABLE.
--- NOTE | 2020-02-22 07:49 | NUR ---
CARE ASSUMED CARE AND REPORT ASSUMED FROM EZEQUIEL SENA. PT SITTING UPRIGHT IN BED, ABLE TO COMMUNICATE HER NEEDS. A/OX 3. WEARING AIRVO 60L, 70% AT START OF SHIFT. PT REPORTED HAVING A BOWEL MOVMENT. PT CLEANED, PACKING REMOVED FROM GROIN AND NEW PACKING INSERTED. BEDDING CHANGED. PHOTOS OF WOUND OBTAINED. PT EXHAUSTED FROM MULTIPLE TURNS AND DRESSING CHANGED. BIPAP 8/5, 55% APPLIED FOR AWHILE AND WILL ATTEMPT TO PUT PT BACK ON AIRVO. FENTANYL 50 MCG IVP GIVEN FOLLOWING DRESSING CHANGE. NSR, HR 80S. BP WNL. TEMP 99.7. WILL COTNINUE TO MONITOR.
--- NOTE | 2020-02-22 12:12 | NUR ---
REASSESSMENT PT REMAINS ON AIRVO 60L, 50% FIO2. ATTEMPTED VENTURI MASK PER MD AND PTS SPO2 DROPPED TO HIGH 70S IN A FEW MINUTES. SPO2 88-96% ON AIRVO CURRENTLY. REMAINS IN NSR, HR 70-80S. BP WNL. WILL CONTINUE TO MONITOR.
--- NOTE | 2020-02-22 18:10 | NUR ---
SHIFT SUMMARY PT HAS REMAINED IN BED THROUGHOUT DAY DUE TO PAIN IN GROIN. SHE HAS HAD MULTIPLE BOWEL MOVEMENTS DURING SHIFT AND EACH TIME, WOUND PACKING NEEDS TO BE REMOVED, CLEANED OUT AND REDRESSED. WOUND PACKING REMOVED, CLEANED AND REINSERTED 2X. WET PACKING INSERTED AND LOOSE ABD PAD APPLIED OVER. DISPOSABLE UNDERWEAR WORN OVER WOUND DRESSING. REMAINS IN NSR, HR 80S. BP WNL ENTIRE SHIFT. TMAX 99.7. PT ASSISTS WITH TURNS AND ADJUSTMENTS IN BED. THROUGHOUT SHIFT, PT WORE AIRVO 60L, 50-60% SPO2 OR BIPAP NEEDED. DOES BEST WITH BIPAP DURING CLEANING AND WOUND CHANGING. PT HAS DECREASED APPETITE TODAY. URINE OUTPUT 280 ML. FENTANYL GIVEN IVP NEEDED FOR PAIN. WILL GIVE BEDSIDE, HANDOFF REPORT TO PALMA RN. PT TO BE NPO AT 0000.
--- NOTE | 2020-02-22 22:00 | NUR ---
ASSUMPTION OF CARE ASSUMED CARE OF PT @ 1900, PT AWAKE IN BED, ORIENTED TO SELF, LOCATION, EVENT AND FOLLOWING DIRECTIONS. PT ON AIRVO @ 60L, FIO2 TITRATED TO MAINTAIN SATURATIONS 88%-94%, CURRENTLY AT 48%. MONITOR SHOWS SINUS RHYTHM, HR 60'S-70'S, BP STABLE. PERIANAL WOUND DRESSING C/D/I, REPORT FROM DAYSHIFT OF MULTIPLE DRESSING CHANGES, PT DECLINES WOUND CARE AT THIS TIME, PLAN FOR OR IN THE MORNING. PT TOLERATING PO INTAKE, SWALLOWS PILLS WHOLE, PT TO BE NPO AT MIDNIGHT. LAWSON IN PLACE. PT MOVES ALL EXTREMETIES, REPOSITIONS SELF IN BED, SIGNIFICANT EXERTIONAL DYSPNEA. PT DENIES ANY NEEDS AT THIS TIME, CALL LIGHT WITHIN REACH.
--- NOTE | 2020-02-23 01:00 | NUR ---
PT AWAKES WITH NURSING CARE, DENIES ANY NEEDS AT THIS TIME. AIRVO TITRATED TO MAINTAIN O2 88%-94%
[2020-02-23 04:47] LABS: Hematocrit 23.7 % (33.0-51.0); Hemoglobin 7.5 g/dL (11.5-16.0); Mean Corpuscular HGB Conc 31.6 g/dL (31.5-36.5); Mean Corpuscular Volume 76 fL (80-100); Mean Platelet Volume 9.9 fL (9.1-12.4); Platelet Count 349 K/mm3 (150-400); RDW Coefficient Variation 18.6 % (11.7-14.2); Red Blood Cell Count 3.12 M/mm3 (3.80-5.20); White Blood Cell Count 12.49 K/mm3 (4.00-11.30)
[2020-02-23 05:04] LABS: Anion Gap 4 mmol/L (6-16); Blood Urea Nitrogen 18 mg/dL (8-24); Bun/Creatinine Ratio 25.9 (12.0-20.0); CO2, Blood 30 mmol/L (21-32); Chloride, Blood 104 mmol/L (98-108); Glomerular Filtration Rate >60 (60-); Glucose, Blood 133 mg/dL (70-99); Potassium, Blood 4.2 mmol/L (3.5-5.5); Sodium, Blood 138 mmol/L (136-145)
--- NOTE | 2020-02-23 06:37 | NUR ---
SHIFT SUMMARY PT SLEEPS ON AND OFF T/O SHIFT, USES CALL LIGHT APPROPRIATELY, REMAINS ORIENTED. PT REMAINS ON AIRVO, DECLINES BIPAP T/O SHIFT, OXYGEN NEEDS UNCHANGED WITH FIO2 50-70%, HOWEVER PT HAS EXTREME DYSPNEA WITH MINIMAL EXERTION (REPOSITIONS IN BED) REQUIRING BREIF INCREASE OF FIO2 UP TO 90% FOR RECOVERY, ALL OTHER VSS. PT REMAINS NPO AFTER MIDNIGHT. LAWSON IN PLACE, DECREASED URINE OUTPUT. PT GUZMAN, REPOSITIONS SELF IN BED DESIRED.
[2020-02-23 06:54] LABS: BAND PERCENT MAN 4 % (0-8); BASOPHILS PERCENT MAN 0 % (0-2); EOSINOPHILS ABSOLUTE MAN 0.87 K/mm3 (0.00-0.68); EOSINOPHILS PERCENT MAN 7 % (0-6); LYMPHOCYTES % ATYPICAL MANUAL 1 % (0-0); LYMPHOCYTES ABSOLUTE MAN 2.37 K/mm3 (0.84-5.20); LYMPHOCYTES PERCENT MAN 18 % (21-46); METAMYELOCYTE ABSOLUTE MAN 0.37 K/mm3 (0.00-0.00); METAMYELOCYTE PERCENT MAN 3 % (0-0); MONOCYTES ABSOLUTE MAN 0.74 K/mm3 (0.16-1.47); MONOCYTES PERCENT MAN 6 % (4-13); MYELOCYTE ABSOLUTE MAN 0.24 K/mm3 (0.00-0.00); MYELOCYTE PERCENT MAN 2 % (0-0); NEUTROPHILS ABSOLUTE MAN 7.86 K/mm3 (1.96-9.15); SEG NEUTROPHILS PERCENT MAN 59 % (41-73); TOTAL CELLS COUNTED 100
--- NOTE | 2020-02-23 09:51 | NUR ---
CARE ASSUMED CARE AND REPORT ASSUMED FROM SEGUNDO SENA. PT SLEEPING BUT EASILY AROUSABLE. STATES SHE HAD A BAD DREAM AND DIFFICULTY ORIENTING HERSELF UPON AWAKENING; SHE IS NOW A/O X 3, CALM AND COOPERATIVE. PT HAD LARGE, LIQUID BOWEL MOVEMENT. PT CLEANED, LINENS CHANGED, AND WOUND EXTENSIVELY WASHED OUT AND REDRESSED WITH PACKING. MD BAKER AT BEDSIDE DURING WOUND CLEANING. RECTAL TUBE INSERTED TO TRY AND KEEP STOOL FROM GETTING INTO WOUND. VSS. PT IN NSR, HR 60-80S. DURING DRESSING CHANGES, PT TOLERATES WEARING BIPAP BEST SHE TENDS TO DESATURATE QUICKLY WITH ANY ACTIVITY. CURRENTLY WEARING AIRVO 60L, 65%. LUNG SOUNDS CLEAR IN UPPER GARCIA WITH SOME CRACKLES IN BASES. FENTANYL 50 MCG IVP GIVEN FOR PAIN AT START OF SHIFT, PRIOR TO WOUND CLEANING. ANTIBIOTICS INFUSING. BP WNL. AFEBRILE. PT ABLE TO TURN HERSELF AND HOLD HER LEGS UP WELL DURING CLEANING. PER MD BAKER, PT UNLIKELY TO HAVE SURGERY TODAY DUE TO O2 DEMANDS. WILL CONTINUE TO MONITOR.
--- NOTE | 2020-02-23 11:17 | NUR ---
REASSESSMENT PT REMAINS IN BED ON AIRVO 60L, 60% FIO2. SPO2 96%; WILL DECREASE O2 TOLERATED. VSS. NSR, HR 80-90S. AFEBRILE. DRESSING C/D/I AT THIS TIME. PT SHUFFLES HER HIPS AROUND AND MOVES HER LEGS WITHOUT ANY ASSISTANCE. WILL CONTINUE TO MONITOR.
--- NOTE | 2020-02-23 14:46 | NUR ---
REASSESSMENT HAD LONG DISCUSSION WITH PT ABOUT THE IMPORTANCE OF ATTEMPTING TO GET OUT OF BED AND INTO A CHAIR OR THE OPTION OF JUST STANDING AT BEDSIDE TO EXERCISE LEGS. PT REFUSED BUT WANTS TO HOME SOON POSSIBLE. MD ACEVEDO EXPLAINED TO PT THAT THERE MAY A NEED FOR SOME REHAB PRIOR TO GOING HOME. FURTHER DISCUSSED WITH PT THE NEED TO MOVE LEGS AND ATTEMPT TO WALK AND STAND TOLERATED. PT REFUSES AT THIS TIME AND IS NOW SLEEPING. WILL CONTINUE ENCOURAGING PT TO AMBULATE. AIRVO CURRENTLY 45L, 55%. WILL CONTINUE TO MONITOR.
--- NOTE | 2020-02-23 18:40 | NUR ---
SHIFT SUMMARY PT SEEN BY MD BAKER IN AM AND HE WAS ABLE TO VISUALIZE WOUND AND ASSIST WITH CLEANING. RECTAL TUBE INSERTED AT START OF SHIFT AND HAS HELPED KEEP LIQUID STOOL FROM SOILING DRESSING. PT TURNED OFTEN AND CONTINUED TO HELP WITH TURNS AND ADJUSTING HERSELF IN BED. VSS ENTIRE SHIFT. O2 NEEDS DECREASED DURING SHIFT. UPDATED ON PHONE. WILL GIVE BEDSIDE, HANDOFF REPORT TO PALMA RN.
--- NOTE | 2020-02-23 19:20 | NUR ---
ASSUME CARE: REPORT RECIEVED FROM MP OFF CHANAG RN. MONITOR INTACT SHOWING SINUS RHYTHM HEART RATE 50'S-60'S. REMAINS ON AIR VO 45/50 SPO2 97-98% LUNG SOUNDS CLEAR WITH DECREASED SOUNDS IN THE BASES. ABDOMEN SOFT WITH BOWEL SOUNDS FOUR QUADS. RECTAL TUBE PATENT WITH BROWN LIQUID RETURN DRESSING REMAINS CLEAN AND INTACT. LAWSON PATENT DRAINING DERECK URINE. REQUEST PRN PAIN MEDICATION. MEDICATED WITH 50MCG FENTANYL. ASSISTS WITH REPOSITIONING TO VIEW WOUND. LAWSON TEMP 99.5. CONTINE TO MONITOR AND REPORT CHANGE IN PATIENT CONDITION
--- NOTE | 2020-02-24 05:12 | NUR ---
SHIFAT SUMMARY RESTS QUIETLY WHEN UNDISTURBED. ONITOR INTACT SHOWING SINUS RHYTHM HEART RATE 50'S-80'S. AIR VO IN PLACE AT 45L 45% SPO2 85-97% DESATURATES WITH ANY EXERTION. LUNG SOUNDS CLEAR UPPER LOBES WITH VERY DECREASED SOUNDS IN THE BASES. CO "COLD I'M SO COLD" WARM BLANKET PROVIDED.DRESSING DRY AND INTACT TO PERIRECTAL AREA. RECTAL TUBE PATENT DRAINING BROWN LIQUID STOOL. LAWSON PATENT DRAINING DERECK URINE. GUZMAN PER SELF IN BED. ASSISTS WITH REPOSITIONING, NEEDS FREQ ENCOURAGEMENT TO REPOSITION. DISCUSS IMPORTANCE WITH PT. '"I KNOW BUT I'M SO TIRED" " I JUST WANT TO REST" CONTINUE TO MONITOR AND REPORT CHANGE IN PATIENT CONDITION
--- NOTE | 2020-02-24 07:42 | NUR ---
Received in room report from Chelsea RN. Patient was awake and able to answer questions. She is on [id number] 44% and just reduced to 40L and sats 88-91%. Joe dressing C/D/I and will changes later this afternoon. She has Gates draining light josué colored urine adequate amounts. She has rectal tube in with dark liquid stool and has been helping keep joe wound clean.She has RIJ dressing intact and site WNL's and is infusing NS TKO. She is 140's systolic with SR/SB 60-70's. She was just medicated prior to shift start for pain and patient states " not really working well" She is pleasant and cooperative with her care.
--- NOTE | 2020-02-24 10:05 | NUR ---
Pre medicated with 1 mg Dilaudid prior to dressing change. Cleaned joe wound, had small amount of drainage, rectal tube working well, placed moist 4X4's and ABD over site. and left underwear off per her request. Repositioned and set up with breakfast and am meds. Changed linen and she refused bath. She assisted with turns very well. RT Increased AirVo to 45L 47% for desaturation while working with patient and she recovered well but leaving O2 up while eating.
--- NOTE | 2020-02-24 12:18 | NUR ---
Patient doing well, medicated for 7/10 pain . Repositioned for comfort. Wound site C/D/I. Sats 98% on 45L 47% and will have RT titrate down.VSS See EMR. No significant changes. Will sit her up for lunch.
--- NOTE | 2020-02-24 17:13 | NUR ---
Medicated patient several more times since this afternoon for perineal wound pain with Dilaudid 1 mg and wors effectively. At 1600 changed her from AirVO 45L 39% to 6L O2 vis NC and since then have reduced to 2 L O2 via NC humidified and sats 94%. Her VSS See EMR. She has tolerated small amounts of food intake and has been drinking pepsi without difficulty. Rectal tube has small amount of liquid stool and Gates has adequate amount.
--- NOTE | 2020-02-24 19:05 | NUR ---
ASSUMPTION OF CARE PT AWAKE IN BED, ORIENTED TO SELF, LOCATION, EVENT AND FOLLOWING DIRECTIONS. PT ON 2-4L PER NC TO MAINTAIN O2 SATURATIONS>88%. MONITOR SHOWS SINUS RHTYHM WITH HR 70'S-80'S, BP STABLE. DRESSING TO MARTIN AREA WOUND C/D/I, PT RECENTLY MEDICATED FOR PAIN, PLAN TO ALLOW PAIN MEDICATION TO BECOME EFFECTIVE, THEN PREMEDICATE WITH PAIN MEDICATION FOR THIS RN TO CHANGE WOUND DRESSING, PT AGREEABLE WITH THIS PLAN, PT CURRENTLY REPORTS 6/10 PAIN. LAWSON AND RECTAL TUBE IN PLACE, DRAINING TO GRAVITY. PT WITH POOR APPETITE, DENIES HUNGER AT THIS TIME. GUZMAN, POSITIONS SELF IN BED. CALL LIGHT WITHIN REACH.
--- NOTE | 2020-02-24 20:53 | NUR ---
WOUND DRESSING CHANGE DRESSING TAKEN DOWN TO ASSESS AREA, PACKING NOT REMOVED AT THIS TIME, OVERALL SITE LOOKS CLEAN, NO PURULENT DRAINAGE NOTED, SEROUSANGUINEOUS DRAINAGE NOTED ON ABD PAD. NEW ABD PAD PLACED. PT TOLERATED WELL, CONVERSED WITH STAFF T/O DRESSING CHANGE, ASSISTED WITH REPOSITIONING NEEDED.
[2020-02-25 05:02] LABS: Hematocrit 24.6 % (33.0-51.0); Hemoglobin 7.5 g/dL (11.5-16.0); Mean Corpuscular HGB 23.7 pg (26.0-34.0); Mean Corpuscular HGB Conc 30.5 g/dL (31.5-36.5); Mean Corpuscular Volume 78 fL (80-100); Mean Platelet Volume 10.1 fL (9.1-12.4); Platelet Count 356 K/mm3 (150-400); RDW Coefficient Variation 18.5 % (11.7-14.2); RDW Standard Deviation 50.4 fL (35.1-46.3); Red Blood Cell Count 3.16 M/mm3 (3.80-5.20); White Blood Cell Count 12.29 K/mm3 (4.00-11.30)
[2020-02-25 05:25] LABS: Anion Gap 5 mmol/L (6-16); Blood Urea Nitrogen 15 mg/dL (8-24); Bun/Creatinine Ratio 20.7 (12.0-20.0); CO2, Blood 28 mmol/L (21-32); Calcium, Blood 7.9 mg/dL (8.5-10.1); Chloride, Blood 103 mmol/L (98-108); Creatinine, Blood 0.73 mg/dL (0.40-1.00); Glomerular Filtration Rate >60 (60-); Glucose, Blood 108 mg/dL (70-99); Sodium, Blood 136 mmol/L (136-145)
[2020-02-25 05:26] LABS: BAND PERCENT MAN 2 % (0-8); BASOPHILS PERCENT MAN 0 % (0-2); EOSINOPHILS ABSOLUTE MAN 0.49 K/mm3 (0.00-0.68); EOSINOPHILS PERCENT MAN 4 % (0-6); LYMPHOCYTES ABSOLUTE MAN 1.72 K/mm3 (0.84-5.20); LYMPHOCYTES PERCENT MAN 14 % (21-46); METAMYELOCYTE ABSOLUTE MAN 0.36 K/mm3 (0.00-0.00); METAMYELOCYTE PERCENT MAN 3 % (0-0); MONOCYTES ABSOLUTE MAN 0.61 K/mm3 (0.16-1.47); MONOCYTES PERCENT MAN 5 % (4-13); NEUTROPHILS ABSOLUTE MAN 9.09 K/mm3 (1.96-9.15); SEG NEUTROPHILS PERCENT MAN 72 % (41-73); TOTAL CELLS COUNTED 100
--- NOTE | 2020-02-25 06:18 | NUR ---
SHIFT SUMMARY PT REMAINS STABLE T/O SHIFT, AROUSES WITH VERBAL STIMULI, ORIENTED x4. O2 TITRATED TO 5L PER NC TOWARDS END OF SHIFT, MONITOR SHOWS SINUS RHYTHM WITH HR 50'S-60'S, BP STABLE WITH MAPS IN THE 70'S. PERIANAL WOUND SITE STABLE, DRESSING C/D/I, PT MEDICATED FOR PAIN x3 THIS SHIFT. RECTAL TUBE AND LAWSON IN PLACE DRAINING TO GRAVITY. PT REPOSITION SELF IN BED, NEEDS SOME ENCOURAGEMENT. CALL LIGHT WITHIN REACH, PT USING APPROPRIATELY.
--- NOTE | 2020-02-25 07:06 | NUR ---
Received report from Joya SENA. Patient resting and awakens easily to verbal stimuli. Her speech is clear and is able to communicate her needs. She remains on 5L O2 via NC while sleeping. VSS, See EMR. She has richardson in place draining to gravity light josué urine in small amounts. Has rectal tube in place for liquid stool and to keep perineal would clean. Perineal would dressing is C/D/I, but states painful 04/23. She MAEW and assist with positioning for comfort.
--- NOTE | 2020-02-25 07:30 | NUR ---
Received report from Joya SENA. Patient is sleeping with HOB at 30 degrees and awakens to verbal stimuli. He is able to clearly communicate his needs. He states that his tremors are worse than normal. He remains on RA and sats 93%. He just finished banana bag. Allowing him to continue to sleep. VSS See EMR.
--- NOTE | 2020-02-25 08:49 | NUR ---
Repostioned patient supine and cleaned and changed Perineal wound dressing. Changed linen and medicated patient for 04/23 pain and am meds. She currently refused breakfast. Reduced her O2 rate to 3L O2 via NC and sats 94%. VSS See EMR. Patient asked if she is going back on her Gabapentin today, will clarify with Dr Jones.
--- NOTE | 2020-02-25 09:22 | NUR ---
Awoke patient awoke to take am meds and states no current pain, Denies wanting breakfast and gave him apple juice for am meds and tolerated well. VSS See EMR. Patient returned to sleeping. Safety Instruction Police Officer by to talk with him.
--- NOTE | 2020-02-25 11:10 | NUR ---
Gave report to CERTIFIED SURGICAL TECHNOLOGIST and transported patient in ICU bed on 2L O2 via NC and when hooked up on monito after transportation was 94% and placed on continuous SpO2. Took all belonging , phone , tablet and both chargeres and her two personal belonging bags. Her teeth and denture sealant in jauregui bucket. Reviewed with nurse before leaving..
--- NOTE | 2020-02-25 11:33 | NUR ---
REPORT RECEIVED FROM [facility] WORKER, PT IS ALERT AND ORIENTED ABLE TO MAKE NEEDS KNOWN. HRR SINUS AT 80'S, 93-97% OF SPO2 ON 2L OF O2 VIA NC, DENIES SOB/ AT THIS TIME, LUNGS CLEAR CRACKLES ON THE BASES. PT HAS PERIANAL WOUND DRESSING THAT IS INTACT, WAS JUST RECENTLY CHANGED BY ICU NURSE PRIOR TO TRANSPORT. RECTAL TUBE IN PLACE DRAINING VIA GRAVITY. PT CURRENTLY RESTING IN BED, WILL MONITOR
[2020-02-25 12:01] LABS: Percent Saturation 10.1 % (15.0-50.0)
--- NOTE | 2020-02-25 18:04 | NUR ---
SHIFT SUMMARY: PT ALERT AND ORIENTED, CALM AND COOPERATIVE, ABLE TO MAKE NEEDS KNOWN. VITALS HAS BEEN STABLE, SPO2 ABOVE 94% ON 2-3L OF O2, PT USES 2L WHEN AWAKE DESATS TO 85-88% WHEN FALLING ASLEEP PT CURRENTLY ON 3L OF O2, PT BILAT CRACKLES ON THE LOWER BASES COUGHS OCCASIONALLY WITH WHITE SPUTUM. PT CONTINUES ON IV ABO FOR PNA. PERIANAL DRESSING INTACT DR BAKER SAW PT TODAY, PT TO SCHEDULE SURGERY TOMORROW TO CLEAN AND CLOSE SOME PART OF THE WOUND PT TO BE NPO AFTER MIDNIGHT PT IS AWARE. RECTAL TUBE AND TEMP LAWSON IN PLACE DRAINING VIA GRAVITY. PT PAIN MANAGED WITH DILAUDID AND FENTANYL AND REPOSITIONING WITH EFFECTIVENESS. IJ CENTRAL LINE WITH 4 PORT INTACT ON RIGHT NECK, IV INFUSING PATENT, GOOD BLOOD RETURN. PT CURRENTLY IN BED CALL LIGHTS WITHIN REACH CALLS APPROPRIATELY, WILL GIVE REPORT TO ONCOMING SHIFT.
--- NOTE | 2020-02-25 21:50 | NUR ---
ASSUMED CARE OF PATIENT AT [facility] FROM SACHA Cueto RN. PATIENT ALERT AND ORIENTED X4; PATIENT REPORTS PAIN IN HER MARTIN AREA; MEDICATED WITH IV DILAUDID WITH GOOD RESULTS; PATIENT REPORTS PAIN IS AN 8 WITH MOVEMENT AND A 5 (TOLERABLE LEVEL) WHEN MEDICATED; Q2H TURNS. PATIENT DENIES NUMBNESS, TINGLING, DIZZINESS OR NAUSEA. RECTAL TUBE IN PLACE; PATIENT REPORTS VERY TENDER; URINARY CATH IN PLACE PATENT. PATIENT TO BE NPO AT MIDNIGHT FOR SURGERY IN AM. PATIENT HAS IJ CENTRAL LINE RIGHT NECK. PATIENT REPORT MARTIN WOUND LOOKS "SO MUCH BETTER". PATIENT CURRENTLY RESTING IN BED; CALL LIGHT IN REACH; BED IN LOWEST POSISTION; BED ALARM ON; WILL CONTINUE TO MONITOR AND ASSESS UNTIL END OF SHIFT.
[2020-02-26 03:56] LABS: BASOPHILS ABSOLUTE AUTO 0.06 K/mm3 (0.00-0.23); BASOPHILS PERCENT AUTO 1 % (0-2); EOSINOPHILS ABSOLUTE AUTO 0.43 K/mm3 (0.00-0.68); EOSINOPHILS PERCENT AUTO 4 % (0-6); Hematocrit 24.5 % (33.0-51.0); Hemoglobin 7.5 g/dL (11.5-16.0); IMMATURE GRAN ABSOLUTE AUTO 0.53 K/mm3 (0.00-0.10); IMMATURE GRAN PERCENT AUTO 5 % (0-1); LYMPHOCYTES ABSOLUTE AUTO 1.78 K/mm3 (0.84-5.20); LYMPHOCYTES PERCENT AUTO 15 % (21-46); MONOCYTES ABSOLUTE AUTO 0.67 K/mm3 (0.16-1.47); MONOCYTES PERCENT AUTO 6 % (4-13); Mean Corpuscular HGB Conc 30.6 g/dL (31.5-36.5); Mean Corpuscular Volume 79 fL (80-100); NEUTROPHILS ABSOLUTE AUTO 8.41 K/mm3 (1.96-9.15); NEUTROPHILS PERCENT AUTO 71 % (41-73); NRBC ABSOLUTE 0.02 K/mm3 (0.00-0.02); NRBC Auto 0.2 /100 WBC (0.0-0.2); Platelet Count 394 K/mm3 (150-400); RDW Coefficient Variation 18.8 % (11.7-14.2); RDW Standard Deviation 51.6 fL (35.1-46.3); Red Blood Cell Count 3.12 M/mm3 (3.80-5.20); White Blood Cell Count 11.88 K/mm3 (4.00-11.30)
[2020-02-26 04:16] LABS: Anion Gap 5 mmol/L (6-16); Blood Urea Nitrogen 10 mg/dL (8-24); Bun/Creatinine Ratio 13.7 (12.0-20.0); CO2, Blood 29 mmol/L (21-32); Calcium, Blood 7.7 mg/dL (8.5-10.1); Chloride, Blood 103 mmol/L (98-108); Creatinine, Blood 0.73 mg/dL (0.40-1.00); Glomerular Filtration Rate >60 (60-); Glucose, Blood 112 mg/dL (70-99); Potassium, Blood 3.8 mmol/L (3.5-5.5); Sodium, Blood 137 mmol/L (136-145)
--- NOTE | 2020-02-26 05:58 | NUR ---
PATIENT HAS BEEN NPO SINCE MIDNIGHT. PAIN CONTROLLED WITH DILAUDID ABOUT EVERY THREE HOURS. DRY PART OF WET TO DRY DRESSSING CHANGE ONCE. OPSITE DRESSING PLACED OVER IJ DRESSING TO REINFORCE BY MICROBIOLOGY ANALYST. NO ACUTE CHANGES TO REPORT. PATIENT SLEPT ABOUT EIGHT HOURS. WILL CONTIUE TO MONITOR AND ASSESS UNTIL END OF SHIFT.
--- NOTE | 2020-02-26 10:47 | NUR ---
PT MEDICATED WITH 1MG DILAUDID IVP PRIOR TO TRANSFER TO SURGICAL FLOOR. FRANKIE FRANKLIN FROM SURGICAL FLOOR WILL REMOVE PT'S CENTRAL LINE UPON ARRIVING TO SURGICAL FLOOR PER DISCUSSION WITH PCU OCEANOLOGY TEACHER. DRESSING IN PLACE, CLEAN AND NO D/C NOTED AT TIME OF THIS NOTE. RECTAL TUBE IN PLACE WITH WATERY STOOL NOTED FROM RECTAL TUBE. LWASON CATH REMAINS IN PLACE. PT ROLLS WELL WITH LITTLE ASSITANCE. PT REMAINS ON 2L O2 TITIRATION DOWN OF O2 WAS NOT SUCCESSFUL WITH RT AT 1L O2. REPORT CALLED TO MARIBETH SENA ON SURGICAL FLOOR, PT LEFT WITH ALL BELONGINGS, ON 2L O2, ALERT AND ANSWERING QUESTIONS APPROPRIATELY UPON LEAVING PCU 2
--- NOTE | 2020-02-26 11:00 | NUR ---
PT REPORTS CONTINUED 7/ PAIN POST DIALUDID ADMINISTRATION, PT STS THAT FENTANYL HAD WORKED BETTER NOW WITH COMPARISON. PT'S PRIMARY RN MARIBETH WAS AT BEDSIDE WHEN THIS PAIN ASSESSMENT WAS PERFORMED.
--- NOTE | 2020-02-26 15:33 | NUR ---
SHIFT SUMMARY PT ARRIVED FROM PCU JUST BEFORE LUNCH THIS MORNING. SHE IS A/O X 4 AND PER REPORT HAS ONGOING C/O PAIN TO HER MARTIN AREA WHERE HER ABCESS/WOUND IS. UPON ARRIVAL SHE WAS ORIENTED TO HER ROOM AND NURSING STAFF. SHE WAS MEDICATED FOR HER PAIN ORDERED AND REPORTED IT TO BE EFFECTIVE. EKG WAS COMPLETED AT THE BEDSIDE BY THE [facility] AND THE RESULTS WERE CALLED IN TO THE DR. LAWSON AND RECTAL TUBE BOTH REMAIN PATENT. OR NURSE CAME TO PICK THE PT UP @ APPROX 15 20 THIS AFTERNOON FOR A REPEAT I/D. PT WAS STABLE UPON TRASPORT AND WE ARE AWAITING HER RETURN.
--- NOTE | 2020-02-26 16:32 | NUR ---
02/26/20 1632 Linda Gutierrez PT ON SCHEDULED ANTIBIOTICS
--- NOTE | 2020-02-27 00:12 | NUR ---
DRESSING & LAWSON PLACEMENT DISCUSSED POSSIBILITY OF LAWSON PLACEMENT WITH ON-CALL HOSPITALIST 02/25 AT APPROX 2200. LAWSON PLACED TO KEEP PERIANAL DRESSINGS CDI PT HAS BEEN MOSTLY INCONTIENT. DRESSINGS ALSO CHANGED 02/26/20 @ 2330 D/T SATURATION OF URINE.
[2020-02-27 00:33] LABS: Source, Urine Catheter
[2020-02-27 00:37] LABS: Bilirubin, Urine Neg (Neg); Blood, Urine 1+ (Neg); Glucose Qualitative, Urine 2+ (Neg); Ketones, Urine Neg (Neg); Leukocyte Esterase, Urine Neg (Neg); Nitrite, Urine Neg (Neg); Protein, Urine Neg (Neg); Specific Gravity, Urine 1.015 (1.003-1.022); Urobilinogen, Urine NORM (Normal)
[2020-02-27 00:39] LABS: Appearance, Urine Clear (Clear); Color, Urine Yellow (P-Yellow)
[2020-02-27 00:42] LABS: Bacteria Rare /hpf; Squamous Epithelial Cells Few /hpf (Few); White Blood Cells, Urine 0-2 /hpf (0-5); Yeast/Fungi Urine Few /hpf
[2020-02-27 04:03] LABS: BASOPHILS ABSOLUTE AUTO 0.04 K/mm3 (0.00-0.23); BASOPHILS PERCENT AUTO 0 % (0-2); EOSINOPHILS ABSOLUTE AUTO 0.02 K/mm3 (0.00-0.68); EOSINOPHILS PERCENT AUTO 0 % (0-6); Hematocrit 25.1 % (33.0-51.0); Hemoglobin 7.6 g/dL (11.5-16.0); IMMATURE GRAN ABSOLUTE AUTO 0.27 K/mm3 (0.00-0.10); IMMATURE GRAN PERCENT AUTO 2 % (0-1); LYMPHOCYTES ABSOLUTE AUTO 1.31 K/mm3 (0.84-5.20); LYMPHOCYTES PERCENT AUTO 12 % (21-46); MONOCYTES ABSOLUTE AUTO 0.39 K/mm3 (0.16-1.47); MONOCYTES PERCENT AUTO 4 % (4-13); Mean Corpuscular HGB 23.8 pg (26.0-34.0); Mean Corpuscular HGB Conc 30.3 g/dL (31.5-36.5); Mean Corpuscular Volume 79 fL (80-100); Mean Platelet Volume 10.3 fL (9.1-12.4); NEUTROPHILS ABSOLUTE AUTO 9.27 K/mm3 (1.96-9.15); NEUTROPHILS PERCENT AUTO 82 % (41-73); Platelet Count 478 K/mm3 (150-400); RDW Coefficient Variation 18.6 % (11.7-14.2); RDW Standard Deviation 51.6 fL (35.1-46.3); Red Blood Cell Count 3.19 M/mm3 (3.80-5.20)
[2020-02-27 04:17] LABS: Anion Gap 7 mmol/L (6-16); Blood Urea Nitrogen 9 mg/dL (8-24); Bun/Creatinine Ratio 13.9 (12.0-20.0); CO2, Blood 29 mmol/L (21-32); Calcium, Blood 7.9 mg/dL (8.5-10.1); Chloride, Blood 102 mmol/L (98-108); Creatinine, Blood 0.65 mg/dL (0.40-1.00); Glomerular Filtration Rate >60 (60-); Glucose, Blood 115 mg/dL (70-99); Potassium, Blood 4.5 mmol/L (3.5-5.5); Sodium, Blood 138 mmol/L (136-145)
--- NOTE | 2020-02-27 04:17 | NUR ---
SHIFT SUMMARY PT IS A/O X4. SHE REPOSITIONS SELF WELL IN BED BUT HAS BEEN VERY UNCOMFORTABLE WITH TOO MUCH MOVEMENT D/T LOCATION OF WOUND. PAIN HAS BEEN MANAGED WITH PO AND IV PAIN MEDS PER ORDERS. DISCUSSED PAIN MANAGEMENT WITH PT. LAWSON WAS PLACED THIS SHIFT PERIANAL DRESSINGS WERE GETTING SATURATED WITH URINE EACH TIME PT VOIDED. PERIANAL DRESSING WAS ALSO CHANGED D/T SATURATION. BIOX HAS BEEN IN USE THROUGHOUT THE SHIFT. CENTRAL LINE WAS DC'D BY JAIDA DYE. PATIENT TOLERATED WELL AND HAS SHOWN NO SIGNS OF COMPLICATION SINCE. PT WAS ABLE TO GET A FEW HOURS OF REST DURING THE NIGHT. VSS. NO ACUTE CHANGES OVERNIGHT. ASSISTED WITH ADL'S PRN.
--- NOTE | 2020-02-27 07:55 | NUR ---
pt stated that she wants to go home dr eldridge by to see pt will try to wean o2 also changed iv abx to po pt req pain meds pain 04/23 to recutm
--- NOTE | 2020-02-27 09:15 | NUR ---
pt had loose stool dressing had stool on it dressing and packing removed new dressing placed
--- NOTE | 2020-02-27 11:07 | NUR ---
pt working with physical therapy
--- NOTE | 2020-02-27 12:00 | NUR ---
pt o2 turned down to 1 l nc biox 92% po percocet given with lunch will cont to monitor biox sat > 88%
--- NOTE | 2020-02-27 12:31 | NUR ---
dr bedolla called for psych consult stated he was unable to see pt at this time req pt to be seen by tele psych called dr kimball stated that pt had been seen by them before and this is ok
--- NOTE | 2020-02-27 12:39 | NUR ---
tele psych to set up talked with pt [facility]
--- NOTE | 2020-02-27 13:17 | NUR ---
pt appointment set up for 8:30 this tito talked with pt about it
--- NOTE | 2020-02-27 15:55 | NUR ---
iv iron ordered pt also given 2 tab po percocet pt stated that when she moves pain is about 7/10 and 5 if not oxygen still at 1 l nc
--- NOTE | 2020-02-27 17:44 | NUR ---
dr martinez by to see pt checked her dressing pt eating dinner
--- NOTE | 2020-02-27 18:12 | NUR ---
biox 0.5 l n.c. pt to wean to ra at 1900 if tamara 93-94%
--- NOTE | 2020-02-27 18:47 | NUR ---
tele psych called asked if we could resched pt appointment to 195 karen called icu charge telma stated that would be ok talked with pt about it to let her know also
--- NOTE | 2020-02-28 06:27 | NUR ---
SHIFT SUMMARY POD 2 I&D PERIRECTAL ABCESS. AA0X4. PT ON ROOM AIR WHEN AWAKE SATS ABOVE 95% DURING SLEEP SATS DROPPED TO 85% PLACED ON 2L AND SATS REMAINED ABOVE 92% WHILE ASLEEP. PT AMBULATED TO RESTROOM AND DENIED SOB DURING EXERTION. MEDICATED FOR PAIN PER EMAR. DRESSING AND PACKING CHANGED DURING SHIFT. PT TOLERATED WELL. PLAN IS TO DISCHARGE HOME TODAY. TELE PSYCH WAS DONE WITH PT AT START OF SHIFT.
[2020-02-28] MEDS ORDERED: AMOCLA875 PO (11:25)
[2020-02-28] MEDS ORDERED: NICO21TP TOP (11:27)
[2020-02-28] MEDS ORDERED: METAMUCIL660 GM PO (11:30)
[2020-02-28] MEDS ORDERED: Florastor250 MG PO (11:31)
[2020-02-28] MEDS ORDERED: FERSU300 PO (11:32)
[2020-02-28] MEDS ORDERED: Percocet 5-3251 EACH PO (11:40)
--- NOTE | 2020-02-28 15:10 | NUR ---
DISCHARGE: PACKET PRINTED AND PT EDUCATED. SENT HOME WITH SCRIPTS AND SUPPLIES FOR DRESSING CHANGES. PT VERBALIZED UNDERSTANDING OF DRESSING CHANGE EDUCATION, STATES THAT HER WILL BE HELPING. HOME HEALTH TO CALL PT AND ARRANGE VISITS ON SUNDAY, PT AWARE. PT LEFT UNIT VIA WHEEL CHAIR AT ABOUT 1315 WITH CHRISTINE MACHADO.
== END 2020-02-28 13:31 | disposition home or self-care (01) | DRG 853 ==
LOC: ER 15:45 → PCU 19:05 → ICUE 19:05 → ICUW 19:05 → ICUE 19:17 → PCU 02-25 11:10 → SURS 02-26 10:50
PROVIDERS: Emergency Medicine; Hospitalist; Internal Medicine Critical Care Medicine; Internal Medicine Pulmonary Disease; Nurse Practitioner Acute Care; Surgery; ADMIT Internal Medicine
PROC: B548ZZA Ultrasonography of Superior Vena Cava, Guidance (ICD-10-PCS; 2020-02-17)
PROC: 3E043XZ Introduction of Vasopressor into Central Vein, Percutaneous Approach (ICD-10-PCS; 2020-02-17)
PROC: 8E0ZXY6 Isolation (ICD-10-PCS; 2020-02-17)
PROC: 02HV33Z Insertion of Infusion Device into Superior Vena Cava, Percutaneous Approach (ICD-10-PCS; principal; 2020-02-17 20:00)
PROC: 5A09357 Assistance with Respiratory Ventilation, Less than 24 Consecutive Hours, Continuous Positive Airway Pressure (ICD-10-PCS; 2020-02-20)
PROC: 0HQ9XZZ Repair Perineum Skin, External Approach (ICD-10-PCS; 2020-02-26)
PROC: 0JBB0ZZ Excision of Perineum Subcutaneous Tissue and Fascia, Open Approach (ICD-10-PCS; 2020-02-27)
DX: A40.9 Streptococcal sepsis, unspecified (principal); R65.21 Severe sepsis with septic shock; J18.9 Pneumonia, unspecified organism; M72.6 Necrotizing fasciitis; J96.01 Acute respiratory failure with hypoxia; N17.0 Acute kidney failure with tubular necrosis; K61.0 Anal abscess; F33.9 Major depressive disorder, recurrent, unspecified; E87.1 Hypo-osmolality and hyponatremia; E87.2 Acidosis; R45.851 Suicidal ideations; E03.9 Hypothyroidism, unspecified; J45.909 Unspecified asthma, uncomplicated; Z90.11 Acquired absence of right breast and nipple; I10 Essential (primary) hypertension; Z85.3 Personal history of malignant neoplasm of breast; G25.81 Restless legs syndrome; D64.9 Anemia, unspecified; E87.6 Hypokalemia; F43.12 Post-traumatic stress disorder, chronic; F17.210 Nicotine dependence, cigarettes, uncomplicated; D72.825 Bandemia; Z20.828 Contact with and (suspected) exposure to other viral communicable diseases; F40.240 Claustrophobia
CPT/HCPCS: 0099U; 31720; 36415; 36556; 51702; 71045; 71046; 73700; 74176; 80048; 80053; 80202; 81001; 82728; 82803; 82947; 83540; 83550; 83605; 83615; 83735; 84100; 84484; 85025; 85610; 85730; 87040; 87070; 87071; 87075; 87205; 93005; 93010; 93306; 94003; 94640; 94660; 94760; 94762; 96361; 96365; 96367; 96375; 97110; 97116; 97162; 99285-25; A9270; A9270-GY; C1751; C9113; J0330; J0456; J0696; J0780; J1100; J1170; J1650; J1940; J2250; J2370; J2405; J2543; J2704; J2916; J3010; J3370; J3480; J7030; J7050; J7060; J7120; U0003

== ENCOUNTER 2020-12-10 08:16 | Inpatient (IN) | payer OTHER ==
[~2020-12-10] VITALS: Ht 157.5 cm; Wt 60.0 kg
[~2020-12-10 08:16] MED LIST: AMOCLA875 PO; ANASTROZOLE PO; ASMANEX220 MC3 INH; DICLOFENAC SOD100 G1 TOP; FERSU300 PO; GABA300 PO; MELA3 PO; METAMUCIL660 GM PO; NAPR500 PO; NICO21TP TOP; ONDA4 PO; Percocet 5-3251 EACH PO; Refresh Plus1 EACH BOTHEYES; SENN187 PO; TRAZ100 PO
[2020-12-10 08:45] LABS: BASOPHILS ABSOLUTE AUTO 0.13 K/mm3 (0.00-0.23); BASOPHILS PERCENT AUTO 1 % (0-2); EOSINOPHILS ABSOLUTE AUTO 0.02 K/mm3 (0.00-0.68); EOSINOPHILS PERCENT AUTO 0 % (0-6); Hematocrit 48.4 % (33.0-51.0); Hemoglobin 15.6 g/dL (11.5-16.0); IMMATURE GRAN PERCENT AUTO 1 % (0-1); LYMPHOCYTES PERCENT AUTO 7 % (21-46); MONOCYTES ABSOLUTE AUTO 1.23 K/mm3 (0.16-1.47); MONOCYTES PERCENT AUTO 5 % (4-13); Mean Corpuscular HGB 27.3 pg (26.0-34.0); Mean Corpuscular HGB Conc 32.2 g/dL (31.5-36.5); Mean Corpuscular Volume 85 fL (80-100); Mean Platelet Volume 9.3 fL (9.1-12.4); NEUTROPHILS ABSOLUTE AUTO 19.76 K/mm3 (1.96-9.15); NEUTROPHILS PERCENT AUTO 86 % (41-73); Platelet Count 291 K/mm3 (150-400); RDW Standard Deviation 46.4 fL (35.1-46.3); Red Blood Cell Count 5.71 M/mm3 (3.80-5.20); White Blood Cell Count 22.94 K/mm3 (4.00-11.30)
[2020-12-10 09:08] LABS: Alanine Aminotransfer (ALT/SGP 30 U/L (12-78); Albumin, Blood 2.8 g/dL (3.4-5.0); Albumin/Globulin Ratio 0.8 (0.8-1.8); Alk Phos 302 U/L (50-136); Anion Gap 18 mmol/L (6-16); Aspartate Aminotrans (AST/SGOT 85 U/L (12-37); Bilirubin, Total 2.3 mg/dL (0.1-1.0); Blood Urea Nitrogen 31 mg/dL (8-24); Bun/Creatinine Ratio 31.8 (12.0-20.0); CO2, Blood 14 mmol/L (21-32); Calcium, Blood 9.8 mg/dL (8.5-10.1); Chloride, Blood 106 mmol/L (98-108); Creatinine, Blood 0.98 mg/dL (0.40-1.00); Globulin, Blood 3.3 g/dL (2.2-4.0); Glomerular Filtration Rate >60 (60-); Glucose, Blood 216 mg/dL (70-99); Magnesium, Blood 4.1 mg/dL (1.6-2.4); Potassium, Blood 3.5 mmol/L (3.5-5.5); Sodium, Blood 138 mmol/L (136-145); Total Protein, Blood 6.1 g/dL (6.4-8.2); Troponin I 0.118 ng/mL (0.000-0.040)
[2020-12-10 09:10] LABS: Calcium, Ionized (POC) 1.26 mmol/L (1.10-1.46); Chloride (POC) 106 mmol/L (98-108); Creatinine (POC) 2.2 mg/dL (0.6-1.0); Glucose (ISTAT POC) 198 mg/dL (70-99); Hemoglobin (POC) 16.7 g/dL (12.0-16.0); Potassium (POC) 3.4 mmol/L (3.5-5.5); Sodium (POC) 135 mmol/L (135-148); Total CO2 (POC) 16 mmol/L (21-32)
[2020-12-10 09:11] LABS: International Normalized Ratio 1.6; Prothrombin Time Results 16.7 Sec (9.7-11.5)
[2020-12-10 11:12] LABS: Source, Urine Clean Catch
[2020-12-10 11:17] LABS: Appearance, Urine Clear (Clear); Blood, Urine 2+ (Neg); Color, Urine Amber (P-Yellow); Glucose Qualitative, Urine Neg (Neg); Ketones, Urine 1+ (Neg); Leukocyte Esterase, Urine 1+ (Neg); Nitrite, Urine Pos (Neg); Protein, Urine 2+ (Neg); Urobilinogen, Urine 2+ (Normal)
[2020-12-10 11:26] LABS: Bilirubin, Urine 1+ (Neg)
[2020-12-10 11:32] LABS: Bacteria Many /hpf; Squamous Epithelial Cells Few /hpf (Few)
[2020-12-10] MEDS ORDERED: ARIP20 PO (13:08)
[2020-12-10] MEDS ORDERED: AMLO5 PO (13:08)
[2020-12-10] MEDS ORDERED: Vitamin D2000 UNIT PO (13:09)
[2020-12-10] MEDS ORDERED: Buspirone HCl15 MG PO (13:09)
[2020-12-10] MEDS ORDERED: EUTHYROX50 MCG PO (13:09)
[2020-12-10] MEDS ORDERED: LISI5 PO (13:10)
[2020-12-10] MEDS ORDERED: MYRBETRIQ50 MG PO (13:11)
[2020-12-10] MEDS ORDERED: PARO30 PO (13:11)
[2020-12-10] MEDS ORDERED: OMEP20ER PO (13:11)
[2020-12-10] MEDS ORDERED: Ropinirole HCl2 MG PO (13:12)
[2020-12-10] MEDS ORDERED: Hydroxyzine HCl50 MG PO (13:15)
[2020-12-10] MEDS ORDERED: LIDO700A20 TOP (13:15)
[2020-12-10] MEDS ORDERED: LACT PO (13:17)
[2020-12-10] MEDS ORDERED: RISP2 PO (13:18)
[2020-12-10] MEDS ORDERED: Oxybutynin Chlo15 MG PO (13:20)
[2020-12-10] MEDS ORDERED: ALBU90OI INH (13:21)
[2020-12-10] MEDS ORDERED: RISEDRONATE SOD35 M2 PO (13:22)
[2020-12-10 14:45] LABS: U Amphetamine Screen Not Detected; U Barbituate Screen Not Detected; U Benzodiazapine Screen Not Detected; U Buprenorphine Screen Not Detected; U Cannabinoids Screen DETECTED; U Cocaine Screen Not Detected; U Methadone Screen Not Detected; U Methamphetamine Screen Not Detected; U Opiates Screen Not Detected; U Oxycodone Screen Not Detected; U Phencyclidine Screen Not Detected; U Propoxyphene Screen Not Detected
--- NOTE | 2020-12-10 15:00 | NUR ---
INITIAL ASSESSMENT PATIENT ARRIVED TO UNIT AT 1333 FROM ER. PATIENT ALERT AND ORIENTED X 4, AFEBRILE. PATIENT BEING GIVEN PRN FENTANYL FOR COMPLAINTS OF ABDOMINAL PAIN THAT STARTED LAST NIGHT. PATIENT WEAKER THAN USUAL BUT ABLE TO REPOSITION SELF IN BED. LUNG SOUNDS DIMINISHED THROUGHOUT. DRY COUGH NOTED. SOB NOTED WITH EXERTION. PATIENT ON RA TO 4 L NC TO KEEP SATS 90% AND GREATER. NC MOSTLY FOR PATIENT COMFORT DUE TO PATIENT ANXIETY. PATIENT IN ST, HR IN THE LOW 100S. SBP 90S TO 120S. PATIENT ON LEVOPHED AT 12 MCG/ MINUTE. PATIENT RECEIVING LR BOLUS. ABDOMEN MODERATELY DISTENDED, TENDER, WITH HYPOACTIVE BS NOTED. PATIENT HAVING SEVERAL STOOLS THAT ARE MIX BETWEEN LIQUID AND SOFT. PATIENT INCONTINENT AT TIMES. PATIENT NAUSEA INTERMITTENTLY. APPEARS WNL AT THIS TIME. SKIN IS DRY AND DUSKY. TOENAILS DUSKY. GI PANL AND COVID TEST SENT TO LAB. PATIENT HAS BEEN ORIENTED TO UNIT, ROOM AND CALL LIGHT. BED LOW, CALL LIGHT IN REACH. WILL CONTINUE TO MONITOR PATIENT FREQUENTLY THROUGHOUT SHIFT.
[2020-12-10 16:00] LABS: Influenza A, PCR NEGATIVE (NEGATIVE); Influenza B, PCR NEGATIVE (NEGATIVE); Resp Syncytial Virus, PCR NEGATIVE (NEGATIVE); SARS-Cov-2 (COVID-19) PCR, MMC NEGATIVE (NEGATIVE)
[2020-12-10 16:20] LABS: Adenovirus F 40/41 Not Detected (NOT DETECT); Astrovirus Not Detected (NOT DETECT); Campylobacter Sp Not Detected (NOT DETECT); Cryptosporidium Not Detected (NOT DETECT); Cyclospora Cayetanensis Not Detected (NOT DETECT); E. Coli O157 Not Detected (NOT DETECT); Entamoeba Histolytica Not Detected (NOT DETECT); Enteroaggregative E. coli-EAEC Not Detected (NOT DETECT); Enteropathogenic E. coli-EPEC Not Detected (NOT DETECT); Enterotoxigenic E. coli-ETEC Not Detected (NOT DETECT); Giardia Lamblia Not Detected (NOT DETECT); Norovirus GI/GII Not Detected (NOT DETECT); Plesiomonas Shigelloides Not Detected (NOT DETECT); Rotavirus A Not Detected (NOT DETECT); Salmonella Sp Not Detected (NOT DETECT); Sapovirus Not Detected (NOT DETECT); Shiga Toxin-prod E. coli-STEC Not Detected (NOT DETECT); Shigella/Enteroin E. coli-EIEC Not Detected (NOT DETECT); Vibrio Cholerae Not Detected (NOT DETECT); Vibrio Sp Not Detected (NOT DETECT); Yersinia Enterocolitica Not Detected (NOT DETECT)
--- NOTE | 2020-12-10 17:01 | NUR ---
Echocardiogram completed.
[2020-12-10 17:07] LABS: Hematocrit 39.1 % (33.0-51.0); Hemoglobin 12.7 g/dL (11.5-16.0)
--- NOTE | 2020-12-10 18:35 | NUR ---
FINALLY ABLE TO GET AHOLD OF PATIENT'S FATHER IN LAW, GINGER, AND , FORREST. BOTH UPDATED ON PATIENT CONDITION. CALL FATHER IN LAW IF ANY OTHER CHANGES WITH PATIENT AND HE WILL GET AHOLD OF PATIENT'S .
[2020-12-10 18:46] LABS: Hematocrit 33.4 % (33.0-51.0); Hemoglobin 10.6 g/dL (11.5-16.0); Mean Corpuscular HGB 27.1 pg (26.0-34.0); Mean Corpuscular HGB Conc 31.7 g/dL (31.5-36.5); Mean Corpuscular Volume 85 fL (80-100); Mean Platelet Volume 10.2 fL (9.1-12.4); NRBC ABSOLUTE 0.02 K/mm3 (0.00-0.02); NRBC Auto 0.2 /100 WBC (0.0-0.2); Platelet Count 148 K/mm3 (150-400); RDW Coefficient Variation 15.3 % (11.7-14.2); RDW Standard Deviation 48.2 fL (35.1-46.3); Red Blood Cell Count 3.91 M/mm3 (3.80-5.20)
--- NOTE | 2020-12-10 19:00 | NUR ---
1705: MADELEINE NG NP CALLED TO UPDATE ON PATIENT CONDITION. LEFT MESSAGE STATING THIS NURSE CONCERNED ABOUT PATIENT REGRESSING. 1720: SPOKE WITH DR. VICTOR ABOUT PATIENT STATUS AND INFORMED THAT CONCERNED ABOUT PATIENT AND THAT IT APPEARS LIKE SHE IS HAVING INCREASED WORK OF BREATHING AND THAT IT IS DIFFICULT TO GET A CONSISTENT BLOOD PRESSURE READING BECAUSE OF INCREASED RESTLESSNESS AND ANXIETY. ORDER FOR PRN ATIVAN OBTAINED. 1740: MADELEINE NG NP IN PATIENT'S ROOM TO ASSESS. PATIENT MADE REMARK TO SAP INTEGRATION ARCHITECT THAT DID NOT MAKE SENSE IN THE CONTEXT USED. 1755: MADELEINE NG SAP INTEGRATION ARCHITECT, CHARGE NURSE MARTIR ARANDA, AND PRIMARY NURSE ALL IN PATIENT ROOM. PATIENT BECOMES UNRESPONSIVE WITH EYES OPEN MINUTES LATER. PRIMARY NURSE STARTED BAGGING PATIENT DID NOT APPEAR TO BE BREATHING ADEQUATELY. CHARGE NURSE CHECKED PULSE. 1758: CODE BLUE CALLED AFTER NO PULSE DETECTED. CPR INITIATED. 1503: 1 MG EPINEPHRINE GIVEN. PEA NOTED. 1805: 1 MG EPI GIVEN. CBG 85. 1807: 1 MG EPI GIVEN. ROSC ACHIEVED. SR AT 88. SATTING 93%. BP MEAN ONLY AT 102. 1810: 70 SUCC, 20 ETOMIDATE. 181: PATIENT INTUBATED. 7.5 CM ETT, [address] AT 111. 99% O2 SATS. BP 137/69. OG TUBE INSERTED AND ATTACHED TO LIS. 1830: LAWSON INSERTED.
--- NOTE | 2020-12-10 19:00 | NUR ---
PATIENT REPORT GIVEN TO ASSUMING RN PEDIATRIC ICU RN.
--- NOTE | 2020-12-10 19:00 | NUR ---
ASSUMED CARE NOTE: ASSUMED CARE OF PT AT 1900, RECEVIED REPORT FROM MARTIN. PT RESPONDS TO PAINFUL STIMULI. MOVING ALL EXTREMITIES, ABLE TO FOLLOW SIMPLE COMMANDS. PT IS ON PROPOFOL AT 20MCG/KG/MIN. PT IS ON VENT WITH SETTINGS AT AC24/400/5/70% , SPO2 AT 92% LUNG SOUNDS ARE COARSE T/O. RT CALLED TO BEDSIDE FOR TREATMENT. PT IS HAVING THICK YELLOW/RED TINGED SECRETIONS VIA ETT. PT IS IN SINUS TACH WITH HR IN THE 110'S. PULSES VIA ALL EXTREMTIES ARE WEAK,THREADY. PT IS ON LEVOPHED AT 20MCG/MIN, VASOPRESSIN AT 0.04U/MIN. ABDOMEN DISTENTED, OGT IN PLACE TO LIS, DARK BROWN DRAINAGE NOTED. LAWSON PATNET DRAINING TO GRAVITY, DARK TEA COLORED URINE. AT BEDSIDE.
[2020-12-10 19:12] LABS: Source, Urine Catheter
[2020-12-10 19:14] LABS: Appearance, Urine Clear (Clear); Blood, Urine 5+ (Neg); Color, Urine Amber (P-Yellow); Glucose Qualitative, Urine Neg (Neg); Ketones, Urine Neg (Neg); Leukocyte Esterase, Urine 1+ (Neg); Nitrite, Urine Neg (Neg); Protein, Urine 2+ (Neg); Urobilinogen, Urine 2+ (Normal)
[2020-12-10 19:15] LABS: Base Excess Venous -19.9 mmol/L; Bicarbonate Venous 9.9 mmol/L (24.0-30.0); PCO2 Venous 70.1 mmHg (38-42); PO2 Venous 123 mmHg (38-42); pH Blood Venous 6.88 (7.34-7.37)
[2020-12-10 19:18] LABS: BAND PERCENT MAN 27 % (0-8); BASOPHILS ABSOLUTE MAN 0.08 K/mm3 (0.00-0.23); BASOPHILS PERCENT MAN 1 % (0-2); EOSINOPHILS ABSOLUTE MAN 0.08 K/mm3 (0.00-0.68); EOSINOPHILS PERCENT MAN 1 % (0-6); LYMPHOCYTES ABSOLUTE MAN 1.66 K/mm3 (0.84-5.20); LYMPHOCYTES PERCENT MAN 20 % (21-46); METAMYELOCYTE ABSOLUTE MAN 0.33 K/mm3 (0.00-0.00); METAMYELOCYTE PERCENT MAN 4 % (0-0); MONOCYTES ABSOLUTE MAN 0.08 K/mm3 (0.16-1.47); MONOCYTES PERCENT MAN 1 % (4-13); NEUTROPHILS ABSOLUTE MAN 6.05 K/mm3 (1.96-9.15); SEG NEUTROPHILS PERCENT MAN 46 % (41-73); TOTAL CELLS COUNTED 100
[2020-12-10 19:20] LABS: Albumin, Blood 1.4 g/dL (3.4-5.0); Albumin/Globulin Ratio 0.8 (0.8-1.8); Bilirubin, Total 1.3 mg/dL (0.1-1.0); Bun/Creatinine Ratio 29.4 (12.0-20.0); Creatinine, Blood 1.26 mg/dL (0.40-1.00); Globulin, Blood 1.7 g/dL (2.2-4.0); Phosphorus, Blood 6.8 mg/dL (2.5-4.9); Potassium, Blood 4.7 mmol/L (3.5-5.5)
[2020-12-10 19:21] LABS: Bilirubin, Urine 1+ (Neg)
[2020-12-10 19:24] LABS: Calcium, Blood 7.3 mg/dL (8.5-10.1); Total Protein, Blood 3.1 g/dL (6.4-8.2)
[2020-12-10 19:26] LABS: White Blood Cells, Urine 0-2 /hpf (0-5)
[2020-12-10 19:27] LABS: Amorphous Light (0-Heavy); Bacteria Few /hpf; Mucus Light (0-Heavy); Red Blood Cells, Urine TNTC /hpf (0-2); Squamous Epithelial Cells Not Seen /hpf (Few)
--- NOTE | 2020-12-10 21:00 | NUR ---
1900: PROPOFOL INCREASED DUE TO PT AGITATION, RR IN THE 40'S, PT ATTEMPTING TO REACH FOR TUBE. 1950: LEVOPHED INCREASED, EPI DRIP STARTED. PROPOFOL DECREASED TO 20MCG/KG/MIN 2100: HOSPITALIST AT BEDSIDE, WILL TAKE PT TO CT SCAN SOON. SODIUM BICARB PUSH WILL BE ORDERED. BP STABLE
--- NOTE | 2020-12-10 23:01 | NUR ---
PT WENT TO CT AT 2130, THIS NURSE, TWO PATIENT CARE TECHS , AND RT TRANSPORTED PT. PT TOLERATED TRANSPORT WELL. BACK TO ROOM ICU10 AT 2200. PT IS MOVING AROUND, FOLLOWING SIMPLE COMMANDS. ATTEMPTING TO SEDATE PATINET WHILE MAINTAINING BP. PRECEDEX INITIATED. PROPOFOL AT 30MCG/KG/MIN, LEVOPHED AT 20MCG/MIN, EPI 4MCG/MIN, GOAL TO MAINTAIN MAP ABOVE 65. OGT TO LIS , DARK BROWN DRAINAGE NOTED. CT FINDINGS SHOWN TO MADELEINE ELLSWORTH.
[2020-12-10 23:06] LABS: Hematocrit 31.1 % (33.0-51.0); Hemoglobin 10.3 g/dL (11.5-16.0)
--- NOTE | 2020-12-11 02:50 | NUR ---
UNABLE TO OBTAIN MANUAL BP. DOPPLER READS 84 SBP. NOTIFIED. CALLED TO SEE IF HE CAN PLACE ARTLINE. WAITING FOR CALL BACK
--- NOTE | 2020-12-11 03:22 | NUR ---
PT'S BP DROPPING , BP MACHINE READS SBP OF 60. PT IS MAX OUT ON LEVOPHED, EPT. NOTIFED. PT IS HAVING NO GAG, PLANTER, CORNEAL REFLEX. SEDATION HAS BEEN TURNED OFF SINCE 299. FAMILY NOTIFED.
[2020-12-11 03:32] LABS: Base Excess Venous -21.8 mmol/L; Bicarbonate Venous 9.7 mmol/L (24.0-30.0); PCO2 Venous 26.8 mmHg (38-42); PO2 Venous 91.9 mmHg (38-42); pH Blood Venous 7.09 (7.34-7.37)
--- NOTE | 2020-12-11 03:35 | NUR ---
SHALONDA AT BEDSIDE. PT GIVEN SODIUM BICARB ORDERED. PT IS OPENING EYES, ABLE TO FOLLOW SIMPLE COMMANDS. RESPONDING TO PAINFUL STIMULI. VENT SETTINGS AC24/400/5/100% FiO2
[2020-12-11 03:45] LABS: Hematocrit 31.1 % (33.0-51.0); Hemoglobin 10.1 g/dL (11.5-16.0); Mean Corpuscular HGB 27.6 pg (26.0-34.0); Mean Corpuscular HGB Conc 32.5 g/dL (31.5-36.5); Mean Corpuscular Volume 85 fL (80-100); Mean Platelet Volume 11.9 fL (9.1-12.4); NRBC ABSOLUTE 0.03 K/mm3 (0.00-0.02); NRBC Auto 0.4 /100 WBC (0.0-0.2); Platelet Count 107 K/mm3 (150-400); RDW Coefficient Variation 15.9 % (11.7-14.2); RDW Standard Deviation 49.7 fL (35.1-46.3); Red Blood Cell Count 3.66 M/mm3 (3.80-5.20); White Blood Cell Count 8.19 K/mm3 (4.00-11.30)
[2020-12-11 04:01] LABS: Albumin, Blood 1.2 g/dL (3.4-5.0); Albumin/Globulin Ratio 0.6 (0.8-1.8); Bilirubin, Total 1.2 mg/dL (0.1-1.0); Calcium, Blood 6.5 mg/dL (8.5-10.1); Creatinine, Blood 1.25 mg/dL (0.40-1.00); Globulin, Blood 1.9 g/dL (2.2-4.0); Potassium, Blood 5.2 mmol/L (3.5-5.5); Total Protein, Blood 3.1 g/dL (6.4-8.2)
--- NOTE | 2020-12-11 05:02 | NUR ---
UPDATE: 0400: PT HAS ARTLINE TO RIGHT FEMORAL SITE, PLACED BY . UPDATE WITH CURRENT LABS. 0500: CALLED TO INFORM US THAT SHE HAS BEEN IN CONTACT WITH . PLAN IS FOR PT TO GO TO THE OR IN THE NEXT HOUR. CURRENT STATUS: PT PLACED BACK ON PROPOFOL AT 20MCG/KG/MIN, DUE TO PT BEING ABLE TO NOD "YES" TO PAIN AND SHOWING SIGNS OF AGITATION. PRECEDEX AT 0.4MCG/KG/HR. BP IS STABLE WITH LEVOPHED AT 15MCG/MIN. EPI DRIP HAS BEEN OFF SINCE ARTLINE PLACEMENT. PT ABDOMEN IS MORE DISTENTED SINCE THE START OF SHIFT, TENDER IN ALL QUADRANTS. OGT TO LIS, DARK BROWN COFFEE GROUNDS NOTED. UNABLE TO OBTAIN SPO2 VIA MONITOR. VBG WAS DRAWN. PT VENT SETTINGS AC24/400/5/100%
[2020-12-11 06:03] LABS: BAND PERCENT MAN 47 % (0-8); BASOPHILS ABSOLUTE MAN 0.08 K/mm3 (0.00-0.23); BASOPHILS PERCENT MAN 1 % (0-2); EOSINOPHILS ABSOLUTE MAN 0.16 K/mm3 (0.00-0.68); EOSINOPHILS PERCENT MAN 2 % (0-6); LYMPHOCYTES ABSOLUTE MAN 1.06 K/mm3 (0.84-5.20); LYMPHOCYTES PERCENT MAN 13 % (21-46); METAMYELOCYTE PERCENT MAN 5 % (0-0); MONOCYTES ABSOLUTE MAN 0.32 K/mm3 (0.16-1.47); MONOCYTES PERCENT MAN 4 % (4-13); MYELOCYTE ABSOLUTE MAN 0.16 K/mm3 (0.00-0.00); MYELOCYTE PERCENT MAN 2 % (0-0); NEUTROPHILS ABSOLUTE MAN 5.97 K/mm3 (1.96-9.15); SEG NEUTROPHILS PERCENT MAN 26 % (41-73); TOTAL CELLS COUNTED 100
--- NOTE | 2020-12-11 06:15 | NUR ---
SHIFT SUMMARY: SEE PREVIOUS NOTES. PT CONTINUES TO BE ON PROPOFOL AT 25MCG/KG/MIN, PRECEDEX AT 0.4MCG/KG/HR. VENT SETTINGS AC24/400/5/100% PT HAS BEEN IN SINUS TACH WITH HR IN THE 110'S. LEVOPHED AT 20MCG/MIN, VASOPRESSIN AT 0.04UNITS/MIN, MAP REMAINS ABOVE 65. OGT RUNNING TO LIS. AT BEDSIDE, ASSESSING PT, PT WILL BE GOING TO THE OR SHORTLY. PT HAS BEEN HAVING LIQUID BROWN STOOLS T/O SHFIT. TEMP LAWSON DRAINING TO GRAVITY. WILL CONTINUE TO MONITOR PT UNTIL REPORT IS GIVEN TO ONCOMING SHIFT.
[2020-12-11 06:54] LABS: International Normalized Ratio 1.83; Prothrombin Time Results 18.9 Sec (9.7-11.5)
--- NOTE | 2020-12-11 06:56 | NUR ---
PT LEFT TO OR AT 0650. REPORT WILL BE GIVEN TO [facility]
--- NOTE | 2020-12-11 09:35 | NUR ---
RECEIVED PT FROM OR VIA BED S/P EXPLORATORY LAPAROTOMY. PT NONRESPONSIVE TO PAINFUL STIMULI. PUPILS 7 MM AND SLUGGISH. SEDATION IS OFF DUE TO HYPOTENSION. EBL 200, AND PT RECEIVED 3000 ML OF IVF DURING PROCEDURE. ART LINE TO RIGHT FEMORAL DRESSING INTACT, BUT OLD BLOOD NOTED. ZEROED A-LINE-MAP TRENDING <60 WITH EPINEPHRINE @ 3MCG/MIN TITRATED UP TO 4 MCG/MIN. LEVOPHED TITRATED UP TO 30 MCG/MIN, VASOPRESSIN A 0.04 UNITS.PT GIVEN 3 AMPS OF HCO3 IVP PER DR. DEWEY VERBAL ORDER. PT IS MOTTLED THROUGH OUT PARTICULARLY TO ABDOMEN AND HIPS. UNABLE TO OBTAIN SPO2. PT BAGGED PER DR. DEWEY ORDER AND ABG DRAWN. LUNGS DIMINISHED IN THE BASES. PT FACE AND PILLOW NOTED TO HAVE GASTRIC CONTENTS ON THEM, OGT TO SUCTION PRODUCTIVE OF MODERATE AMOUNT OF DARK, BROWN DRAINAGE. MIDLINE/ABDOMEN WITH WOUND VAC. BLOOD POOLING UNDER DRESSING AND NOT A GOOD SEAL. RE-ENFORED WITH TEGADERM DRESSING AND SUCTION RETURNED. STAT H&H AND LACTIC ACID SENT PER DR. DEWEY VERBAL ORDER. ONCE ABG RESULTS REVIEWED BY DR. DEWEY, ETT TO VENT: AC 24, TV 400, FIO2 100%, PEEP 14. PT SPOUSE CONTACTED BY DR. DEWEY-PT IS TO REMAIN A FULL CODE AT THIS TIME.
[2020-12-11 09:56] LABS: PCO2 Arterial 28.1 mmHg (35-45); PO2 Arterial 159 mmHg (80-100); pH Blood Arterial 7.35 (7.35-7.45)
--- NOTE | 2020-12-11 10:00 | NUR ---
PT REMAINS MOTTLED AND COLD TEMP 95.0-ANGELA HUGGER PLACED. STILL UNABLE TO OBTAIN SPO2.
[2020-12-11 10:20] LABS: Hematocrit 19.9 % (33.0-51.0); Hemoglobin 6.6 g/dL (11.5-16.0)
--- NOTE | 2020-12-11 10:27 | NUR ---
12/11/20 1027 [facility] 0940 PT RETURNED TO ICU ROOM 10 VIA BED , PT REMAINS ON VENT, X2 RN'S, ANESTHESIA, AND REPIRATORY THERAPIST HELP IN TRANSPORTING PT BACK TO ICU.
--- NOTE | 2020-12-11 11:18 | NUR ---
LACTIC ACID 15.5-RESULTS TO DR. DEWEY-NO NEW ORDERS.
--- NOTE | 2020-12-11 11:55 | NUR ---
MAP TRENDING LESS THAN 60-EPINEPHRINE TITRATED UP TO 5 MCG/MIN. H&H 6.6/19.9. DR. DEWEY NOTIFIED. WITH TRANSFUSE 2 UNITS PRBC'S.
--- NOTE | 2020-12-11 12:00 | NUR ---
PT REMAINS NONRESPONSIVE. NO CORNEAL REFLEX, NO COUGH, NO GAG, NO RESPONSE TO NOXIOUS STIMULI. PT NOT BREATHING OVER THE SET VENT RATE OF 24.
--- NOTE | 2020-12-11 12:50 | NUR ---
PT BRADYCARDIC, THEN NOTED IN ASYSTOLE-CPR STARTED AND CODE BLUE INITIATED. SEE CODE BLUE SHEET. ROSC @ 1301. EPINEPHRINE DRIP TITRATED UP TO 10 MCG/MIN AND LEVPHED DECREASED TO 20 MCG/MIN PER DR. DEWEY VERBAL ORDER.
--- NOTE | 2020-12-11 13:17 | NUR ---
PT AGAIN BRADYCARDIC, THEN ASYSTOLE. CPR INITIATED AND CODE BLUE CALLED. PT RECEIVED A TOTAL OF 7 DOSES (CODE BLUE X 2) OF EPI IN ADDITION TO THE EPINEPHERINE DRIP INFUSING @ 30 MCG/MIN, LEVOPHED @ 30 MCG/MIN, AND VASOPRESSIN @ 0.04 UNITS. A TOTAL OF 2 UNITS PRBC'S RAPIDLY TRANSFUSED. BICARB X 2 AMPS GIVEN AND BICARB DRIP INCREASED TO 150 CC/HR. CHEST COMPRESSIONS DONE FROM [id number]. THEN AGAIN FROM [id number].ULTIMATELY, DESPITE RESUSITATIVE EFFORTS, PT WENT INTO ASYSTOLE AGAIN AT [address] DEWEY AT BEDSIDE TO PRONOUNCE.
== END 2020-12-11 13:41 | DRG 853 ==
LOC: ER 08:16 → ICUW 11:28
PROVIDERS: Internal Medicine Pulmonary Disease; Nurse Practitioner Acute Care; Physician Assistant; Surgery; ADMIT Internal Medicine
PROC: 02HV33Z Insertion of Infusion Device into Superior Vena Cava, Percutaneous Approach (ICD-10-PCS; 2020-12-10)
PROC: 3E043XZ Introduction of Vasopressor into Central Vein, Percutaneous Approach (ICD-10-PCS; 2020-12-10)
PROC: 0BH17EZ Insertion of Endotracheal Airway into Trachea, Via Natural or Artificial Opening (ICD-10-PCS; 2020-12-10)
PROC: 5A1935Z Respiratory Ventilation, Less than 24 Consecutive Hours (ICD-10-PCS; 2020-12-10)
PROC: 5A12012 Performance of Cardiac Output, Single, Manual (ICD-10-PCS; 2020-12-11)
PROC: 04HK33Z Insertion of Infusion Device into Right Femoral Artery, Percutaneous Approach (ICD-10-PCS; 2020-12-11)
PROC: 0DTE0ZZ Resection of Large Intestine, Open Approach (ICD-10-PCS; principal; 2020-12-11 06:15)
DX: A41.51 Sepsis due to Escherichia coli [E. coli] (principal); R65.21 Severe sepsis with septic shock; J96.01 Acute respiratory failure with hypoxia; K55.049 Acute infarction of large intestine, extent unspecified; E87.2 Acidosis; N12 Tubulo-interstitial nephritis, not specified as acute or chronic; F33.9 Major depressive disorder, recurrent, unspecified; R18.8 Other ascites; Z20.822 Contact with and (suspected) exposure to COVID-19; J44.9 Chronic obstructive pulmonary disease, unspecified; E03.9 Hypothyroidism, unspecified; F17.210 Nicotine dependence, cigarettes, uncomplicated; Z90.11 Acquired absence of right breast and nipple; F43.12 Post-traumatic stress disorder, chronic; K80.20 Calculus of gallbladder without cholecystitis without obstruction; I46.9 Cardiac arrest, cause unspecified; Z78.1 Physical restraint status
CPT/HCPCS: 0097U; 0241U; 31500; 36415; 36430; 36569; 36620; 51702; 51798; 71045; 71260; 74176; 74177; 76705; 80047; 80053; 81001; 81025; 82140; 82550; 82803; 82947; 83605; 83690; 83735; 83880; 84100; 84145; 84484; 85014; 85018; 85025; 85610; 85730; 86850; 86900; 86901; 86923; 87040; 87070; 87077; 87086; 87106; 87186; 87205; 88307; 92950; 93005; 93010; 93306; 94002; 94003; 94640; 96361; 96365-59; 96366; 96367; 96375; 99285-25; A9270; C1751; C9113; G0480; J0171; J0330; J2060; J2250; J2370; J2405; J2543; J2550; J2704; J3010; J3480; J7030; J7060; J7070; J7120; P9016; P9046; Q9967; V2790